=== PATIENT | male | born 1975 | race Hispanic/Latino ===

== ENCOUNTER 2018-06-26 11:27 | Emergency (ER) | payer SELFPAY ==
[2018-06-26 12:23] LABS: Hematocrit 45.4 % (35.5-45.6); Hemoglobin 15.8 gm/dl (11.8-15.2); Mean Corpuscular HGB Conc 35 % (32-34); Mean Corpuscular Hemoglobin 30 pg (28-32); Mean Corpuscular Volume 87 fl (84-94); Platelet Count 315 K/mm3 (140-440); Red Blood Count 5.21 M/mm3 (3.65-5.03)
[2018-06-26 12:47] LABS: BUN/Creatinine Ratio 23; Blood Urea Nitrogen 18 mg/dL (9-20); Calcium 9.3 mg/dL (8.4-10.2); Hemolysis Index 36
--- NOTE | 2018-06-26 12:48 | Emergency Department Report ---
ED Neuro Deficit HPI - General Chief Complaint: Neuro Symptoms/Deficit Stated Complaint: RT LEG RT ARM TINGLE Time Seen by Provider: 06/26/18 12:17 Source: EMS Mode of arrival: Wheelchair Limitations: No Limitations - History of Present Illness Initial Comments: 42 year old male with a past medical history of Chiari malformation 1, asthma, and gout presents to the hospital with complaints of worsening neurologic symptoms. Patient was recently diagnosed with Chiari malformation 1 in October 2017. At that time he was having intermittent blackouts, dizziness, blurred vision, headaches, and tingling to the right side of his body. In November 2017 [facility] neurosurgeon Alber Montenegro performed surgery and patient thought this would alleviate his symptoms. Symptoms decreased slightly but have been progressively worsening. The last 4 days he has had persistent and more significant tingling to the right arm and leg and having difficulty gripping objects was his right hand. He also states he is beginning to have some mild tingling sensation to his left side as well. He continues to have intermittent severe headaches, blackouts, and dizzy spells. Light exacerbates headache. He complains of frequent nausea but no vomiting reported today. He is currently on caffeine pills to try to control his headache symptoms which are recently increased by his primary care doctor Dr. Hale. Patient apparently is scheduled to see a new neurologist Dr. Bridges but was sent to the ER by his PCP due to increasing neurologic symptoms. - Related Data Home Medications: Previous Rx's Medication Instructions Recorded Last Taken Type Amoxicillin/K Clav Tab [Augmentin 1 tab PO Q12HR #20 tab 03/23/16 Unknown Rx 875 mg] HYDROcodone/APAP 5-325 [Alpine 1 each PO Q4HR PRN #20 tablet 03/23/16 Unknown Rx 5/325] Allergies/Adverse Reactions: Allergies Allergy/AdvReac Type Severity Reaction Status Date / Time tomato Allergy Shortness Verified 03/22/16 20:49 of Breath ED Review of Systems ROS: Stated complaint: RT LEG RT ARM TINGLE Other details as noted in HPI Comment: All other systems reviewed and negative ED Past Medical Hx - Past Medical History Hx Asthma: Yes Additional medical history: gout, Chiari malformation I October 2017 - Surgical History Additional Surgical History: Chiari malformation surgery 11/2017 - Social History Smoking Status: Unknown if ever smoked Substance Use Type: None - Medications Home Medications: Home Medications Medication Instructions Recorded Confirmed Last Taken Type Amoxicillin/K Clav Tab [Augmentin 1 tab PO Q12HR #20 tab 03/23/16 Unknown Rx 875 mg] HYDROcodone/APAP 5-325 [Alpine 1 each PO Q4HR PRN #20 tablet 03/23/16 Unknown Rx 5/325] ED Neuro Physical Exam - General Limitations: No Limitations Suspected Stroke: Yes - NIHSS Assessment Interval: Baseline 1a. Level of Consciousness: alert/keenly responsive 1b. LOC Questions: answers both correctly 1c. LOC Commands: performs tasks correctly 2. Best Gaze: normal 3. Visual: no visual loss 4. Facial Palsy: normal symmetrical movement 5b. Motor Arm Right: no drift 5a. Motor Arm Left: no drift 6a. Motor Leg Left: no drift 6b. Motor Leg Right: no drift 7. Limb Ataxia: absent 8. Sensory: mild/moderate sensory loss (right arm and right leg) 9. Best Language: no aphasia 10. Dysarthria: normal 11. Extinction/Inattention: no abnormality Total Score: 1 Stroke Severity: Minor Stroke - Other Other exam information: General: No limitations, patient is alert in no acute distress Head exam: Atraumatic, normocephalic Eyes exam: Normal appearance, pupils equal reactive to light, extraocular movements intact ENT: Moist mucous membrane, normal oropharynx Neck exam: Normal inspection, full range of motion, no meningismus nontender Respiratory exam: Clear to auscultation bilateral, no wheezes, rales, crackles Cardiovascular: Normal rate and rhythm, normal heart sounds Abdomen: Soft, nondistended, and nontender, with normal bowel sounds, no rebound, or guarding Extremity: Full range of motion normal inspection no deformity Back: Normal Inspection, full range of motion, no tenderness Neurologic: Alert, oriented x3, cranial nerves intact, see NIH stroke scale. Decreased sensation to the right arm and leg described as a tingling sensation. No left or right extremities drift On exam Psychiatric: normal affect, normal mood Skin: Warm, dry, intact ED Course Vital Signs 06/26/18 06/26/18 06/26/18 11:37 12:06 12:16 Temperature 98.8 F Pulse Rate 73 89 75 Respiratory 18 21 16 Rate Blood Pressure 133/95 140/89 O2 Sat by Pulse 97 96 Oximetry 06/26/18 06/26/18 06/26/18 12:30 12:52 13:00 Temperature Pulse Rate 75 73 77 Respiratory 18 27 H 15 Rate Blood Pressure 137/82 137/82 153/82 O2 Sat by Pulse 96 96 96 Oximetry 06/26/18 14:00 Temperature Pulse Rate 71 Respiratory 11 L Rate Blood Pressure 134/84 O2 Sat by Pulse 96 Oximetry - Consultations Consultation #1: 06/26/18 14:40 Case d/w [facility] transfer service, awaiting neurosurgery call back 06/26/18 15:19 Received call back from [facility] transfer service. Transfer RN spoke to Dr Matthew Mac (neurosurgeon) who believes his symptoms are chronic and progressive and people also have a fluid collection after surgery. Provided an option for follow-up in clinic tomorrow or Sunday or patient can be transferred to the emergency department at [facility] for evaluation. Pt chooses to f/u tomorrow. - Lab Data Result diagrams: 06/26/18 12:08 06/26/18 12:08 Lab Results 06/26/18 06/26/18 Range/Units 12:08 12:08 WBC 5.4 (4.5-11.0) K/mm3 RBC 5.21 H (3.65-5.03) M/mm3 Hgb 15.8 H (11.8-15.2) gm/dl Hct 45.4 (35.5-45.6) % MCV 87 (84-94) fl MCH 30 (28-32) pg MCHC 35 H (32-34) % RDW 14.0 (13.2-15.2) % Plt Count 315 (140-440) K/mm3 Sodium 137 (137-145) mmol/L Potassium 4.4 (3.6-5.0) mmol/L Chloride 101.1 (98-107) mmol/L Carbon Dioxide 22 (22-30) mmol/L Anion Gap 18 mmol/L BUN 18 (9-20) mg/dL Creatinine 0.8 (0.8-1.5) mg/dL Estimated GFR > 60 ml/min BUN/Creatinine Ratio 23 % Glucose 93 (75-100) mg/dL Calcium 9.3 (8.4-10.2) mg/dL - Radiology Data Radiology results: report reviewed CT HEAD WITHOUT CONTRAST INDICATION: Right arm and leg numbness and tingling. History of Chiari 1 malformation surgery. COMPARISON: None similar. FINDINGS: Noncontrast head CT demonstrates overall normal ventricles and sulci without acute or recent infarct, hemorrhage, mass effect or midline shift. An index transverse measurement of the left frontal horn is approximately 0.9 cm, axial series 2, image 31. Posterior fossa demonstrates suboccipital midline craniectomy with extra-axial hypodense possible fluid collection measuring 2.5 cm AP x 4.4 cm transverse, axial series 2, image 12 with incompletely imaged craniocaudal extent of at least approximately 5 cm. Basilar cisterns though still preserved. Somewhat low lying cerebellar tonsils again not excluded. Normal imaged eye globes. Moderate to severe right sphenoid sinus opacification. Mild bilateral maxillary, ethmoid and left sphenoid sinus mucosal thickening also seen. Grossly clear remainder imaged paranasal sinuses and mastoid air cells. Normal remainder calvarium and scalp. C4-C5 degenerative changes. CONCLUSION: 1. Hypodense postoperative surgical bed fluid collection/seroma in this patient with suboccipital craniotomy, as detailed above. Please correlate clinically as also with prior imaging, if available. 2. Extensive sinusitis and few other findings, as above. Thank you for the opportunity to participate in this patient's care. - Medical Decision Making Patient has chronic progressive and worsening right-sided paresthesias as well as a variety of neurologic symptoms as result of Chiari malformation. Surgery did not correct the symptoms. CT head was performed and communicated to transfer service. After discussion with on-call neurosurgeon it is suggested that symptoms are chronic and progressive and patient may follow up in the office tomorrow or be transferred to the ER today. Patient chooses to follow up tomorrow in the office. Patient should call at 7 AM and office will be provided his information as well for follow-up. Patient will be provided a copy of his CT on disc and reports to take to his neurosurgeon is tomorrow. - Differential Diagnosis Chiari malformation, hydrocephalus, CVA, radiculopathy Critical Care Time: No Critical care attestation.: If time is entered above; I have spent that time in minutes in the direct care of this critically ill patient, excluding procedure time. ED Disposition Clinical Impression: Chiari malformation type I, Paresthesia of right arm and leg, Chronic headaches Disposition: DC-01 TO HOME OR SELFCARE Is pt being admited?: No Does the pt Need Aspirin: No Condition: Stable Instructions: Chiari Malformation (GEN), Paresthesia (ED) Additional Instructions: Follow up with your neurosurgeon tomorrow in the office. They open at 7 AM. I suggest calling at 7 AM to discuss time to go into the office. Referrals: PRIMARY CAREMD [Primary Care Provider] - 3-5 Days MD Lan [Other] - 06/27/18 ([facility]) Time of Disposition: 15:40
--- NOTE | 2018-06-26 14:21 | Cat Scan Report ---
CT HEAD WITHOUT CONTRAST INDICATION: Right arm and leg numbness and tingling. History of Chiari 1 malformation surgery. COMPARISON: None similar. FINDINGS: Noncontrast head CT demonstrates overall normal ventricles and sulci without acute or recent infarct, hemorrhage, mass effect or midline shift. An index transverse measurement of the left frontal horn is approximately 0.9 cm, axial series 2, image 31. Posterior fossa demonstrates suboccipital midline craniectomy with extra-axial hypodense possible fluid collection measuring 2.5 cm AP x 4.4 cm transverse, axial series 2, image 12 with incompletely imaged craniocaudal extent of at least approximately 5 cm. Basilar cisterns though still preserved. Somewhat low lying cerebellar tonsils again not excluded. Normal imaged eye globes. Moderate to severe right sphenoid sinus opacification. Mild bilateral maxillary, ethmoid and left sphenoid sinus mucosal thickening also seen. Grossly clear remainder imaged paranasal sinuses and mastoid air cells. Normal remainder calvarium and scalp. C4-C5 degenerative changes. CONCLUSION: 1. Hypodense postoperative surgical bed fluid collection/seroma in this patient with suboccipital craniotomy, as detailed above. Please correlate clinically as also with prior imaging, if available. 2. Extensive sinusitis and few other findings, as above. Thank you for the opportunity to participate in this patient's care.
[2018-06-26 15:58] VITALS: BP 127/74
== END 2018-06-26 16:07 | disposition home or self-care (01) ==
LOC: ED 11:27
DX: G93.5 Compression of brain (principal); J45.909 Unspecified asthma, uncomplicated; Z91.018 Allergy to other foods
CPT/HCPCS: 36415; 70450; 80048; 85027; 99284

== ENCOUNTER 2020-10-06 17:20 | Emergency (ER) | payer SELFPAY ==
[2020-10-06 17:26] VITALS: BP 109/78
[2020-10-06] MEDS ORDERED: KETOROLAC 30 MG/1 ML INJ IM ONE (17:56)
[2020-10-06] MEDS ORDERED: dexAMETHasone 20 MG/5 ML VIAL IM ONE (17:56)
--- NOTE | 2020-10-06 18:01 | Emergency Department Report ---
ED Extremity Problem HPI - General Chief complaint: Extremity Injury, Lower Stated complaint: GOUT PAIN Time Seen by Provider: 10/06/20 17:54 Source: patient Mode of arrival: Ambulatory Limitations: No Limitations - History of Present Illness Initial comments: This is 44-year-old male presents the emergency department with chief complaint of acute left knee and ankle pain for the past 2 days. Patient has a history of recurrent gout flares. He denies any change in his diet that may have precipitated this flareup. He reports the pain is 9 out of 10 worse with movement practically weightbearing. He states this is a very typical location of his gout flareup on the left leg and has had this multiple times in the past. He denies any fever, chills, night sweats, headache, dizziness, blurry vision, nausea, vomit, diarrhea, chest pain, shortness of breath or any other associated symptoms. MD Complaint: extremity pain, extremity swelling Severity scale (0 -10): 9 - Related Data Previous Rx's Medication Instructions Recorded Last Taken Type Amoxicillin/K Clav Tab [Augmentin 1 tab PO Q12HR #20 tab 03/23/16 Unknown Rx 875 mg] HYDROcodone/APAP 5-325 [[place] 1 each PO Q4HR PRN #20 tablet 03/23/16 Unknown Rx 5/325] Acetaminophen with Codeine 1 tab PO Q6HR #12 tab 10/06/20 Unknown Rx [Acetaminophen-Codeine #4 TAB] predniSONE [Deltasone] 50 mg PO QDAY #5 tablet 10/06/20 Unknown Rx Allergies Allergy/AdvReac Type Severity Reaction Status Date / Time tomato Allergy Shortness Verified 10/06/20 17:22 of Breath ED Review of Systems ROS: Stated complaint: GOUT PAIN Other details as noted in HPI Comment: All other systems reviewed and negative Constitutional: denies: chills, fever Eyes: denies: eye pain, eye discharge, vision change ENT: denies: ear pain, throat pain Respiratory: denies: cough, shortness of breath, wheezing Cardiovascular: denies: chest pain, palpitations Endocrine: no symptoms reported Gastrointestinal: denies: abdominal pain, nausea, diarrhea Genitourinary: denies: urgency, dysuria Musculoskeletal: as per HPI, joint swelling. denies: back pain, arthralgia Skin: denies: rash, lesions Neurological: denies: headache, weakness, paresthesias Psychiatric: denies: anxiety, depression Hematological/Lymphatic: denies: easy bleeding, easy bruising ED Past Medical Hx - Past Medical History Hx Asthma: Yes Additional medical history: gout, Chiari malformation I October 2017 - Surgical History Additional Surgical History: Chiari malformation surgery 11/2017 - Social History Smoking Status: Never Smoker Substance Use Type: None, Alcohol - Medications Home Medications: Home Medications Medication Instructions Recorded Confirmed Last Taken Type Amoxicillin/K Clav Tab [Augmentin 1 tab PO Q12HR #20 tab 03/23/16 Unknown Rx 875 mg] HYDROcodone/APAP 5-325 [[place] 1 each PO Q4HR PRN #20 tablet 03/23/16 Unknown Rx 5/325] Acetaminophen with Codeine 1 tab PO Q6HR #12 tab 10/06/20 Unknown Rx [Acetaminophen-Codeine #4 TAB] predniSONE [Deltasone] 50 mg PO QDAY #5 tablet 10/06/20 Unknown Rx ED Physical Exam - General Limitations: No Limitations General appearance: alert, in no apparent distress - Head Head exam: Present: atraumatic, normocephalic - Eye Eye exam: Present: normal appearance, PERRL, EOMI Pupils: Present: normal accommodation - ENT ENT exam: Present: normal exam, normal orophraynx, mucous membranes moist - Neck Neck exam: Present: normal inspection, full ROM. Absent: tenderness, meningismus - Respiratory Respiratory exam: Present: normal lung sounds bilaterally. Absent: respiratory distress, wheezes, rales, rhonchi, stridor - Cardiovascular Cardiovascular Exam: Present: regular rate, normal rhythm, normal heart sounds. Absent: systolic murmur, diastolic murmur, rubs, gallop - GI/Abdominal GI/Abdominal exam: Present: soft, normal bowel sounds. Absent: distended, tenderness, guarding, rebound, rigid - Rectal Rectal exam: Present: deferred - Extremities Exam Extremities exam: Present: normal inspection, full ROM, tenderness (Tenderness to palpation of the left ankle with some mild soft tissue swelling. Tenderness to palpation of the left knee with some effusion. There is full active range of motion with minimal pain. There is no posterior calf tenderness. Normal DP and PT pulses.), normal capillary refill. Absent: calf tenderness - Back Exam Back exam: Present: normal inspection, full ROM. Absent: tenderness, CVA tenderness (R), CVA tenderness (L) - Neurological Exam Neurological exam: Present: alert, oriented X3, normal gait - Psychiatric Psychiatric exam: Present: normal affect, normal mood - Skin Skin exam: Present: warm, dry, intact, normal color. Absent: rash ED Course Vital Signs 10/06/20 17:25 Temperature 97.8 F Pulse Rate 100 H Respiratory 18 Rate Blood Pressure 109/78 [Right] O2 Sat by Pulse 97 Oximetry ED Medical Decision Making - Medical Decision Making Patient nontoxic in no acute distress. Vital signs are stable. Exam was consistent with an acute gouty flare. The patient is a low Wells risk for DVT and no posterior calf tenderness with a negative Homans' sign making this unlikely. I will treat the patient with an IM injection of Decadron and Toradol and discharge him with Tylenol 3 and prednisone and recommended outpatient follow-up with his primary care doctor. Return to the emerge department any change or worsening symptoms. He was educated about low purine diet to avoid future gout flares. He verbalized understanding the diagnosis, treatment plan and follow-up instructions and all his questions were answered. - Differential Diagnosis Acute gouty arthritis, strain, sprain, DVT Critical care attestation.: If time is entered above; I have spent that time in minutes in the direct care of this critically ill patient, excluding procedure time. ED Disposition Clinical Impression: Acute gouty arthritis Disposition: TO HOME OR SELFCARE Is pt being admited?: No Condition: Stable Instructions: Low-Purine Eating Plan Prescriptions: Acetaminophen with Codeine [Acetaminophen-Codeine #4 TAB] 1 tab PO Q6HR #12 tab predniSONE [Deltasone] 50 mg PO QDAY #5 tablet Referrals: [facility] [Provider Group] - 3-5 Days Time of Disposition: 18:00
== END 2020-10-06 19:51 | disposition home or self-care (01) ==
LOC: ED 17:20
DX: M10.9 Gout, unspecified (principal); J45.909 Unspecified asthma, uncomplicated; Z79.899 Other long term (current) drug therapy; Z91.018 Allergy to other foods; Z98.890 Other specified postprocedural states
CPT/HCPCS: 96372; 99282; J1100; J1885

== ENCOUNTER 2021-02-09 11:58 | Emergency (ER) | payer SELFPAY ==
[2021-02-09] MEDS ORDERED: SODIUM CHLORIDE 0.9% 1000 ML 1,000 ML IV ONE (13:11)
[2021-02-09] MEDS ORDERED: MAGNESIUM SULFATE 2 GM/50 ML BAG IV ONE (13:11)
[2021-02-09] MEDS ORDERED: methylPREDNISolone Sod Succinate 125 MG/2 ML INJ IV ONE (13:11)
[2021-02-09] MEDS ORDERED: EPINEPHrine/PF 1 MG/1 ML INJ SUB-Q ONE (13:11)
[2021-02-09] MEDS ORDERED: ALBUTEROL 2.5 MG/3 ML NEBU IH ONE (13:11)
[2021-02-09] MEDS ORDERED: IPRATROPIUM 0.02% NEBU 2.5 ML IH ONE (13:11)
[2021-02-09] MEDS ORDERED: ACETAMINOPHEN 500 MG TAB PO ONE (13:12)
--- NOTE | 2021-02-09 13:13 | Emergency Department Report ---
ED General Adult HPI - General Chief complaint: Dyspnea/Respdistress Stated complaint: CP/ADOLPH PUI?: No Time Seen by Provider: 02/09/21 12:37 Source: patient, RN notes reviewed, old records reviewed Mode of arrival: Ambulatory Limitations: No Limitations - History of Present Illness Initial comments: The patient was evaluated in the emergency department for symptoms described in the history of present illness. He/she was evaluated in the context of the global COVID-19 pandemic, which necessitated consideration that the patient might be at risk for infection with the virus that causes COVID-19. Institutional protocols and algorithms that pertain to the evaluation of patients at risk for COVID-19 are in a state of rapid change based on information released by regulatory bodies including the CDC and federal and state organizations. These policies and algorithms were followed during the patient's care in the emergency department. Please note that these policies, procedures and recommendations changed on a rapid basis. This is a 45-year-old gentleman. He is not known to myself previously. He reports a history of costochondritis, and asthma. He is also up-to-date with COVID-19 vaccinations. He presents to the ER today with a complaint of cough, wheezing, shortness of breath, and chest wall pain. His symptoms have been going on for 4 days. He denies fever, loss of taste and smell. He denies vomiting. He denies diaphoresis. He denies travel, surgery, DVT and pulmonary embolism risk factors. He reports that he typically gets chest wall pain with his asthma attacks. Chest wall pain is central and left-sided, and does not radiate to the back, arms or neck. Cough and wheezing constant. He is not really tried any medications at home. To the best of his recollection, he has not been intubated. -: Gradual, days(s) Location: chest Radiation: non-radiation Consistency: constant Improves with: rest Worsens with: movement (Palpation of chest wall) - Related Data Previous Rx's Medication Instructions Recorded Last Taken Type predniSONE [Deltasone] 50 mg PO QDAY #5 tablet 10/06/20 Unknown Rx Acetaminophen [Non-Aspirin Extra 500 mg PO Q6HR PRN #30 tablet 02/09/21 Unknown Rx Strength] Albuterol Sulfate [Albuterol 0.63% 0.63 mg IH Q4HR PRN #2 ml 02/09/21 Unknown Rx NEBS] Albuterol Sulfate [Proair 90 mcg IH Q4HR PRN #2 aer.pow.ba 02/09/21 Unknown Rx Respiclick] Benzonatate [Tessalon Perles] 100 mg PO Q8HR PRN #30 capsule 02/09/21 Unknown Rx Famotidine [Pepcid] 20 mg PO BID #10 tablet 02/09/21 Unknown Rx Ibuprofen [Motrin] 600 mg PO Q8H PRN #30 tablet 02/09/21 Unknown Rx predniSONE [Deltasone] 40 mg PO QDAY #8 tab 02/09/21 Unknown Rx Allergies Allergy/AdvReac Type Severity Reaction Status Date / Time tomato Allergy Shortness Verified 02/09/21 15:02 of Breath ED Review of Systems ROS: Stated complaint: CP/ADOLPH Other details as noted in HPI Constitutional: malaise, other (Denies loss of taste and smell) Eyes: denies: eye discharge ENT: congestion Respiratory: cough, shortness of breath, SOB with exertion, SOB at rest, wheezing Cardiovascular: chest pain (Chest wall pain) Gastrointestinal: denies: nausea, vomiting Musculoskeletal: denies: back pain Neurological: weakness Psychiatric: anxiety Hematological/Lymphatic: denies: easy bleeding ED Past Medical Hx - Past Medical History Previous Medical History?: Yes Hx Asthma: Yes Additional medical history: gout, Chiari malformation I October 2017 - Surgical History Past Surgical History?: Yes Additional Surgical History: Chiari malformation surgery 11/2017 - Social History Smoking Status: Never Smoker Substance Use Type: None, Alcohol - Medications Home Medications: Home Medications Medication Instructions Recorded Confirmed Last Taken Type predniSONE [Deltasone] 50 mg PO QDAY #5 tablet 10/06/20 Unknown Rx Acetaminophen [Non-Aspirin Extra 500 mg PO Q6HR PRN #30 tablet 02/09/21 Unknown Rx Strength] Albuterol Sulfate [Albuterol 0.63% 0.63 mg IH Q4HR PRN #2 ml 02/09/21 Unknown Rx NEBS] Albuterol Sulfate [Proair 90 mcg IH Q4HR PRN #2 aer.pow.ba 02/09/21 Unknown Rx Respiclick] Benzonatate [Tessalon Perles] 100 mg PO Q8HR PRN #30 capsule 02/09/21 Unknown Rx Famotidine [Pepcid] 20 mg PO BID #10 tablet 02/09/21 Unknown Rx Ibuprofen [Motrin] 600 mg PO Q8H PRN #30 tablet 02/09/21 Unknown Rx predniSONE [Deltasone] 40 mg PO QDAY #8 tab 02/09/21 Unknown Rx ED Physical Exam - General Limitations: No Limitations General appearance: alert, anxious, in distress, obese - Head Head exam: Present: atraumatic, normocephalic - Eye Eye exam: Present: normal appearance, EOMI. Absent: nystagmus - ENT ENT exam: Present: normal exam, normal orophraynx, mucous membranes moist, normal external ear exam - Neck Neck exam: Present: normal inspection, full ROM. Absent: tenderness, meningismus - Respiratory Respiratory exam: Present: respiratory distress, wheezes, rhonchi, chest wall tenderness, accessory muscle use - Cardiovascular Cardiovascular Exam: Present: normal rhythm, tachycardia, normal heart sounds. Absent: bradycardia, irregular rhythm, systolic murmur, diastolic murmur, rubs, gallop - GI/Abdominal GI/Abdominal exam: Present: soft. Absent: distended, tenderness, guarding, rebound, rigid, pulsatile mass - Rectal Rectal exam: Present: deferred - Extremities Exam Extremities exam: Present: normal inspection, full ROM, other (2+ pulses noted in the bilateral upper and lower extremities. There is no palpable cord. negative Homans sign. Muscular compartments are soft. The pelvis is stable.). Absent: pedal edema, calf tenderness - Back Exam Back exam: Present: normal inspection, full ROM. Absent: tenderness, CVA tenderness (R), CVA tenderness (L), paraspinal tenderness, vertebral tenderness - Neurological Exam Neurological exam: Present: alert, normal gait, other (No facial droop. Tongue midline. Extraocular movements intact bilaterally. Facial sensation intact to light touch in V1, V2, V3 distribution bilaterally. 5 and a 5 strength in 4 extremities. Sensation intact to light touch in 4 extremities.). Absent: motor sensory deficit - Psychiatric Psychiatric exam: Present: anxious - Skin Skin exam: Present: warm, dry, intact, normal color. Absent: rash ED Course Vital Signs 02/09/21 02/09/21 02/09/21 12:02 13:25 14:01 Temperature 98.2 F Pulse Rate 101 H 86 Pulse Rate [ 105 H Anterior Bilateral Throughout] Respiratory 30 H Rate Respiratory 22 Rate [Anterior Bilateral Throughout] Blood Pressure 117/79 118/80 [Right] O2 Sat by Pulse 92 94 Oximetry 02/09/21 02/09/21 15:00 16:09 Temperature Pulse Rate 79 83 Pulse Rate [ Anterior Bilateral Throughout] Respiratory Rate Respiratory Rate [Anterior Bilateral Throughout] Blood Pressure 137/63 123/82 [Right] O2 Sat by Pulse 93 92 Oximetry - Reevaluation(s) Reevaluation #1: 02/09/21 14:05 Differential diagnosis, including but not limited to: Asthma, bronchitis, pneumonia, costochondritis, pericarditis, myocarditis, acute coronary syndrome Assessment and plan: 39-year-old gentleman who is both tachypneic and tachycardic, with improved hypoxia, with known history of reactive airways disease, who denies DVT and pulmonary embolism risk factors, who is low risk by Wells criteria for pulmonary embolism, with a negative D-dimer, abnormal EKG, negative troponin, low risk for major adverse cardiac event as per heart score, with probable asthma exacerbation, and resultant costochondritis. He is wheezing quite impressively on his initial examination, so he'll be treated with albuterol, Atrovent, steroids, magnesium, and subcutaneous epin ephrine. He'll be given fluids, and acetaminophen for his reproducible chest wall pain. Chest wall pain present for 4 days, troponin negative x1, therefore, as per the [employer] clinical policy, myocardial infarction may be excluded with one set of cardiac enzymes. Reassess after he is completed his therapy, and after remainder of laboratory studies have resulted. 02/09/21 15:31 Patient reassessed. Wheezing improved. Has resolved. Tachycardia resolved. O2 sat 99% on room air. Patient on his cell phone, and in no acute distress. Reports significant improvement in his symptomatology. 02/09/21 16:13 Patient feels improved and ready to go. Vital signs reviewed and appreciated. There may be some VQ mismatch after administration of albuterol and Atrovent. However the patient is symptomatically improved, not wheezing, and endorses readiness for discharge. ED Medical Decision Making - Lab Data Result diagrams: 02/09/21 13:24 02/09/21 13:24 Vital Signs 02/09/21 02/09/21 12:02 13:25 Temperature 98.2 F Pulse Rate 101 H Pulse Rate [ 105 H Anterior Bilateral Throughout] Respiratory 30 H Rate Respiratory 22 Rate [Anterior Bilateral Throughout] Blood Pressure 117/79 [Right] O2 Sat by Pulse 92 Oximetry Lab Results 02/09/21 02/09/21 02/09/21 Range/Units 13:24 13:24 13:24 WBC 6.7 (4.5-11.0) K/mm3 RBC 5.44 H (3.65-5.03) M/mm3 Hgb 16.3 H (11.8-15.2) gm/dl Hct 46.8 H (35.5-45.6) % MCV 86 (84-94) fl MCH 30 (28-32) pg MCHC 35 H (32-34) % RDW 13.3 (13.2-15.2) % Plt Count 259 (140-440) K/mm3 PT 13.9 (12.2-14.9) Sec. INR 1.09 (0.87-1.13) D-Dimer < 135.00 (0-234) ng/mlDDU Estimated GFR > 60 ml/min BUN/Creatinine Ratio 13 % Total Creatine Kinase (55-170) units/L 02/09/21 Range/Units 13:24 WBC (4.5-11.0) K/mm3 RBC (3.65-5.03) M/mm3 Hgb (11.8-15.2) gm/dl Hct (35.5-45.6) % MCV (84-94) fl MCH (28-32) pg MCHC (32-34) % RDW (13.2-15.2) % Plt Count (140-440) K/mm3 PT (12.2-14.9) Sec. INR (0.87-1.13) D-Dimer (0-234) ng/mlDDU Estimated GFR ml/min BUN/Creatinine Ratio % Total Creatine Kinase 153 (55-170) units/L - EKG Data -: EKG Interpreted by Hi EKG shows normal: sinus rhythm Rate: tachycardia - EKG Data When compared to previous EKG there are: previous EKG unavailable 02/09/21 14:04 EKG interpreted at 12: 10 Sinus rhythm, tachycardia, 102 bpm. Extreme rightward axis deviation. Incomplete right bundle branch block. QTC prolonged. TX interval within normal limits. This is an abnormal EKG. This is not a STEMI. - Radiology Data Radiology results: image reviewed interpreted by me: Portable one view x-ray of the chest, interpreted by myself, no pneumothorax, no infiltrate, unremarkable osseous structures. Critical Care Time: Yes Critical care time in (mins) excluding proc time.: 35 Critical care attestation.: If time is entered above; I have spent that time in minutes in the direct care of this critically ill patient, excluding procedure time. ED Disposition Clinical Impression: Costochondritis Reactive airway disease Qualifiers: Asthma severity: moderate Asthma complication type: with acute exacerbation Disposition: DC-01 TO HOME OR SELFCARE Is pt being admited?: No Does the pt Need Aspirin: No Condition: Good Instructions: Asthma, Adult, Costochondritis, [id number] Additional Instructions: Please take the albuterol every 4-6 hours for the next 5 days as directed, and use the steroids for the next 4 days as directed. Take the ibuprofen and acetaminophen as needed for chest wall pain, and Pepcid as needed for pain. Please follow-up with your primary care doctor or senior oracle soa developer within the next 3 to 5 days. Avoid consumption of tobacco, smoke products, alcohol, heavy and spicy foods. Please return to the emergency room right away with new pain, worsened pain, migration of pain, projectile vomiting, change in mental status, confusion, inability to tolerate liquid feeds, new, worsened or different symptoms not present on the initial emergency room evaluation. For the patient's convenience, local primary care doctor, Dr. Gupta information has been provided. Dr. Cardona is a local senior oracle soa developer. Prescriptions: Albuterol Sulfate [Albuterol 0.63% NEBS] 0.63 mg IH Q4HR PRN #2 ml PRN Reason: Wheezing predniSONE [Deltasone] 40 mg PO QDAY #8 tab Ibuprofen [Motrin] 600 mg PO Q8H PRN #30 tablet PRN Reason: Pain Acetaminophen [Non-Aspirin Extra Strength] 500 mg PO Q6HR PRN #30 tablet PRN Reason: Pain , Severe (7-10) Famotidine [Pepcid] 20 mg PO BID #10 tablet Albuterol Sulfate [Proair Respiclick] 90 mcg IH Q4HR PRN #2 aer.pow.ba PRN Reason: Wheezing Benzonatate [Tessalon Perles] 100 mg PO Q8HR PRN #30 capsule PRN Reason: Cough Referrals: KARL VILLALBA MD [Staff Physician] - 3-5 Days IRENE CARDONA MD [Staff Physician] - 3-5 Days Forms: Work/School Release Form(ED) Heart Score - HEART Score History: Slightly suspicious EKG: Non-specific Age: 45-65 Risk factors: 1-2 risk factors Troponin: < normal limit HEART Score: 3 - EKG Read Time Time EKG Completed: 12:10 EKG Read Time: 12:10 - Critical Actions Critical Actions: 0-3 pts:0.9-1.7%risk of adverse cardiac event.Candidate for discharge
[2021-02-09 13:48] LABS: Hematocrit 46.8 % (35.5-45.6); Hemoglobin 16.3 gm/dl (11.8-15.2); Mean Corpuscular HGB Conc 35 % (32-34); Mean Corpuscular Volume 86 fl (84-94); Platelet Count 259 K/mm3 (140-440); Red Blood Count 5.44 M/mm3 (3.65-5.03); Red Cell Distribution Width 13.3 % (13.2-15.2)
[2021-02-09 13:54] LABS: INR 1.09 (0.87-1.13)
[2021-02-09 13:58] LABS: BUN/Creatinine Ratio 13; Blood Urea Nitrogen 10 mg/dL (9-20); Calcium 8.8 mg/dL (8.4-10.2); Hemolysis Index 13
--- NOTE | 2021-02-09 15:12 | XRay Report ---
CHEST 1 VIEW 02/09/2021 1:08 PM INDICATION / CLINICAL INFORMATION: Dyspnea. COMPARISON: None available. FINDINGS: SUPPORT DEVICES: None. HEART / MEDIASTINUM: The heart size and pulmonary vasculature are normal. LUNGS / PLEURA: No significant pulmonary or pleural abnormality. No pneumothorax. ADDITIONAL FINDINGS: No significant additional findings. IMPRESSION: No acute findings. Signer Name: Deonte Rodriguez MD Signed: 02/09/2021 3:07 PM Workstation Name: [id number]
[2021-02-09 16:10] VITALS: BP 123/82
--- NOTE | 2021-02-10 12:06 | Electrocardiograph Report ---
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
== END 2021-02-09 16:42 | disposition home or self-care (01) ==
LOC: ED 11:58
DX: J45.909 Unspecified asthma, uncomplicated (principal); M94.0 Chondrocostal junction syndrome [Tietze]; Z98.890 Other specified postprocedural states; Z79.1 Long term (current) use of non-steroidal anti-inflammatories (NSAID); Z79.899 Other long term (current) drug therapy; Z91.018 Allergy to other foods
CPT/HCPCS: 36415; 71045; 80048; 82550; 83735; 84484; 85027; 85379; 85610; 93005; 94640; 96365; 96372; 96375; 99284; J0171; J2930; J3475; J7030; 94644

== ENCOUNTER 2021-03-21 11:00 | Emergency (ER) | payer SELFPAY ==
[2021-03-21 11:32] VITALS: BP 126/82
--- NOTE | 2021-03-21 11:48 | Emergency Department Report ---
ED Extremity Problem HPI - General Chief complaint: Extremity Injury, Lower Stated complaint: POSSIBLE BLOOD CLOT Time Seen by Provider: 03/21/21 11:46 Source: patient Mode of arrival: Ambulatory Limitations: No Limitations - History of Present Illness Initial comments: 45-year-old male was sent to the ER for venous Doppler of his left lower extremity. Patient states that on Sunday the while she was at work he tripped over a pallet that was on the floor. He states that most of his weight went onto his knee and then he hit his knee on the concrete floor. After he suffered the injury he had significant pain and swelling to his left knee. His job sent him to the clinic for evaluation. He had x-rays of the knee and his wrist right wrist both of which showed no fractures. Currently doing physical therapy but he states that while he was doing therapy today the therapist noted that he had increasing swelling down his left leg and was concerned and sent him back to the doctor at the clinic. The doctor at the clinic recommended that he come in to have a Doppler done to rule out a DVT. In addition to having pain and swelling to the left knee, patient also reports pain and swelling into his left lower leg and also in the calf area. He denies any prior history of PE or DVT. He denies any chest pain, shortness of breath or any additional symptoms at this time. He states he has a follow-up appointment with his doctor at the clinic tomorrow. Complaint: extremity pain, extremity swelling -: days(s) (3) - Related Data Previous Rx's Medication Instructions Recorded Last Taken Type predniSONE [Deltasone] 50 mg PO QDAY #5 tablet 10/06/20 Unknown Rx Acetaminophen [Non-Aspirin Extra 500 mg PO Q6HR PRN #30 tablet 02/09/21 Unknown Rx Strength] Albuterol Sulfate [Albuterol 0.63% 0.63 mg IH Q4HR PRN #2 ml 02/09/21 Unknown Rx NEBS] Albuterol Sulfate [Proair 90 mcg IH Q4HR PRN #2 aer.pow.ba 02/09/21 Unknown Rx Respiclick] Benzonatate [Tessalon Perles] 100 mg PO Q8HR PRN #30 capsule 02/09/21 Unknown Rx Famotidine [Pepcid] 20 mg PO BID #10 tablet 02/09/21 Unknown Rx Ibuprofen [Motrin] 600 mg PO Q8H PRN #30 tablet 02/09/21 Unknown Rx predniSONE [Deltasone] 40 mg PO QDAY #8 tab 02/09/21 Unknown Rx Allergies Allergy/AdvReac Type Severity Reaction Status Date / Time tomato Allergy Shortness Verified 02/09/21 15:02 of Breath ED Review of Systems ROS: Stated complaint: POSSIBLE BLOOD CLOT Other details as noted in HPI Respiratory: denies: cough, shortness of breath, wheezing Cardiovascular: denies: chest pain, palpitations Musculoskeletal: joint swelling, arthralgia, myalgia Skin: denies: rash, lesions, change in color, change in hair/nails, pruritus Neurological: denies: headache, weakness, paresthesias Psychiatric: denies: anxiety, depression, auditory hallucinations, visual hallucinations, homicidal thoughts Hematological/Lymphatic: denies: easy bleeding, easy bruising ED Past Medical Hx - Past Medical History Previous Medical History?: Yes Hx Asthma: Yes Additional medical history: gout, Chiari malformation I October 2017 - Surgical History Past Surgical History?: Yes Additional Surgical History: Chiari malformation surgery 11/2017 - Social History Smoking Status: Never Smoker Substance Use Type: None, Alcohol - Medications Home Medications: Home Medications Medication Instructions Recorded Confirmed Last Taken Type predniSONE [Deltasone] 50 mg PO QDAY #5 tablet 10/06/20 Unknown Rx Acetaminophen [Non-Aspirin Extra 500 mg PO Q6HR PRN #30 tablet 02/09/21 Unknown Rx Strength] Albuterol Sulfate [Albuterol 0.63% 0.63 mg IH Q4HR PRN #2 ml 02/09/21 Unknown Rx NEBS] Albuterol Sulfate [Proair 90 mcg IH Q4HR PRN #2 aer.pow.ba 02/09/21 Unknown Rx Respiclick] Benzonatate [Tessalon Perles] 100 mg PO Q8HR PRN #30 capsule 02/09/21 Unknown Rx Famotidine [Pepcid] 20 mg PO BID #10 tablet 02/09/21 Unknown Rx Ibuprofen [Motrin] 600 mg PO Q8H PRN #30 tablet 02/09/21 Unknown Rx predniSONE [Deltasone] 40 mg PO QDAY #8 tab 02/09/21 Unknown Rx ED Physical Exam - General Limitations: No Limitations General appearance: alert, in no apparent distress - Head Head exam: Present: atraumatic, normocephalic, normal inspection - Eye Eye exam: Present: normal appearance, PERRL, EOMI Pupils: Present: normal accommodation - ENT ENT exam: Present: normal exam, mucous membranes moist - Neck Neck exam: Present: normal inspection, full ROM - Respiratory Respiratory exam: Present: normal lung sounds bilaterally. Absent: respiratory distress - Cardiovascular Cardiovascular Exam: Present: regular rate, normal rhythm, normal heart sounds - Expanded Lower Extremity Exam Left Knee exam: Present: tenderness, swelling (Mild to moderate swelling noted to the knee). Absent: full ROM (Mild decrease in flexion due to pain), abrasion, laceration, ecchymosis, deformity, dislocation, erythema, effusion Lower Leg exam: Present: tenderness (Mild tenderness to palpation to the left calf area), swelling (Moderate swelling noted to the left lower leg including the calf), ecchymosis (Subtle scattered areas of ecchymosis noted to the leg). Absent: laceration, deformity, crepidus, dislocation, erythema, palpable cord, Cheyanne's sign Neuro vascular tendon exam: Absent: no vascular compromise, abnormal cap refill, motor deficit, sensory deficit Gait: Positive: observed and limited by pain (Mild limping gait due to pain) - Neurological Exam Neurological exam: Present: alert, oriented X3, CN II-XII intact - Psychiatric Psychiatric exam: Present: normal affect, normal mood - Skin Skin exam: Present: intact ED Course Vital Signs 03/21/21 11:31 Temperature 98.0 F Pulse Rate 85 Respiratory 13 Rate Blood Pressure 126/82 O2 Sat by Pulse 95 Oximetry ED Medical Decision Making - Radiology Data Radiology results: report reviewed Patient: MARKOS BROWN MR# : [id number] : 1975 Acct:[id number] Age/Sex: 45 / M ADM Date: 03/21/21 Loc: ED Attending Dr: Ordering Physician: TEODORA MADISON Date of Service: 03/21/21 Procedure(s): VL venous duplex LE LT Accession Number(s): [id number] cc: TEODORA MADISON VL venous duplex LE LT INDICATION / CLINICAL INFORMATION: leg swelling. TECHNIQUE: Duplex doppler imaging was performed using venous compression and other maneuvers. COMPARISON: None available. FINDINGS: No venous thrombosis is identified within the visualized extremity vasculature. ADDITIONAL FINDINGS: None. IMPRESSION: 1. No sonographic evidence for DVT in the visualized left lower extremity vasculature. Signer Name: eKnnedy Lewis MD Signed: 03/21/2021 12:43 PM Workstation Name: [id number] Transcribed By: BESSIE Dictated By: Kennedy Lewis MD Electronically Authenticated By: Kennedy Lewis MD Signed Date/Time: 03/21/21 124 DD/ 42 TD/TT: Critical care attestation.: If time is entered above; I have spent that time in minutes in the direct care of this critically ill patient, excluding procedure time. ED Disposition Clinical Impression: Contusion of left knee, Left leg swelling Disposition: TO HOME OR SELFCARE Is pt being admited?: No Does the pt Need Aspirin: No Condition: Stable Instructions: Contusion, [id number], Peripheral Edema Additional Instructions: I recommend that you elevate your leg as often as possible. Keep your appointment with your doctor at the clinic tomorrow. Return to the ER if your symptoms worsens or changes in any way. Referrals: PRIMARY CAREMD [Primary Care Provider] - 3-5 Days Time of Disposition: 13:01
--- NOTE | 2021-03-21 12:47 | Vascular Lab Report ---
VL venous duplex LE LT INDICATION / CLINICAL INFORMATION: leg swelling. TECHNIQUE: Duplex doppler imaging was performed using venous compression and other maneuvers. COMPARISON: None available. FINDINGS: No venous thrombosis is identified within the visualized extremity vasculature. ADDITIONAL FINDINGS: None. IMPRESSION: 1. No sonographic evidence for DVT in the visualized left lower extremity vasculature. Signer Name: Kennedy Lewis MD Signed: 03/21/2021 12:43 PM Workstation Name: [id number]
== END 2021-03-21 13:09 | disposition home or self-care (01) ==
LOC: ED 11:00
DX: S80.02XA Contusion of left knee, initial encounter (principal); R22.42 Localized swelling, mass and lump, left lower limb; J45.909 Unspecified asthma, uncomplicated; Z72.89 Other problems related to lifestyle; Z91.018 Allergy to other foods; Z79.899 Other long term (current) drug therapy; W01.0XXA Fall on same level from slipping, tripping and stumbling without subsequent striking against object, initial encounter; Y93.89 Activity, other specified; Y92.89 Other specified places as the place of occurrence of the external cause; Y99.8 Other external cause status
CPT/HCPCS: 99283

== ENCOUNTER 2021-04-29 23:38 | Emergency (ER) | payer SELFPAY ==
[2021-04-30 00:18] VITALS: BP 131/83
[2021-04-30 01:02] LABS: Basophils # (Auto) 0.1 K/mm3 (0.0-0.1); Basophils % (Auto) 0.8 % (0.0-1.8); Eosinophils # (Auto) 0.8 K/mm3 (0.0-0.4); Eosinophils % (Auto) 9.6 % (0.0-4.3); Lymphocytes # (Auto) 2.7 K/mm3 (1.2-5.4); Lymphocytes % (Auto) 30.5 % (13.4-35.0); Mean Corpuscular HGB Conc 37 % (32-34); Mean Corpuscular Volume 87 fl (84-94); Monocytes # (Auto) 0.8 K/mm3 (0.0-0.8); Monocytes % (Auto) 9.5 % (0.0-7.3); Platelet Count 291 K/mm3 (140-440); Red Blood Count 4.99 M/mm3 (3.65-5.03)
[2021-04-30 01:05] LABS: Hematocrit 43.5 % (35.5-45.6)
[2021-04-30 01:23] LABS: Alanine Aminotransferase 17 units/L (7-56); Albumin 4.5 g/dL (3.9-5); BUN/Creatinine Ratio 17; Blood Urea Nitrogen 15 mg/dL (9-20); Calcium 9.2 mg/dL (8.4-10.2); Hemolysis Index 25
== END 2021-04-30 00:30 | disposition left against medical advice (07) ==
LOC: ED 23:38
DX: R04.2 Hemoptysis (principal); R06.02 Shortness of breath; Z53.21 Procedure and treatment not carried out due to patient leaving prior to being seen by health care provider
CPT/HCPCS: 36415; 80053; 85025

== ENCOUNTER 2021-07-06 21:28 | Observation (INO) | payer OTHER ==
--- NOTE | 2021-07-06 22:00 | Emergency Department Report ---
ED Shortness of Breath HPI - General Chief Complaint: Dyspnea/Respdistress Stated Complaint: ASTHMA ATTACK Time Seen by Provider: 07/06/21 21:59 Source: patient, EMS Mode of arrival: Stretcher Limitations: No Limitations - History of Present Illness Initial Comments: Patient is a 45-year-old male who presents emergency room with complaints of asthma attack and difficulties breathing. Patient states he has been having difficulty breathing for 1 week. Patient states he has not seen a doctor for many years. Patient states been using old albuterol inhalers. Patient states he was at work and went into an asthma attack and his boss called 911. Patient was brought in by EMS. Patient was given albuterol 5 mg and Decadron 10 mg IV. Patient states he still having significant difficulties breathing. Patient states he feels he cannot catch his breath. Patient denies fever and chills. Patient states he has an occasional cough. Patient states the cough is dry. Patient states that shortness of breath better with rest and worse with exertion. By EMS, the patient was found to be hypoxic and placed on 5 L of oxygen. Patient denies recent travel. Patient denies recent international travel. Patient denies exposure to the novel coronavirus. Patient denies sick contacts. Patient denies fever and chills. Patient denies loss of smell. Patient denies diarrhea. Patient denies coming in contact with anybody with symptoms of the novel coronavirus. Complaint: shortness of breath, cough Severity: severe Consistency: constant Improves With: rest Worsens With: exertion, medication Known History Of: asthma Context: medication noncompliance Associated Symptoms: cough Treatments Prior to Arrival: bronchodilator, other - Related Data Home Oxygen Therapy: No Previous Rx's Medication Instructions Recorded Last Taken Type predniSONE [Deltasone] 50 mg PO QDAY #5 tablet 10/06/20 Unknown Rx Acetaminophen [Non-Aspirin Extra 500 mg PO Q6HR PRN #30 tablet 02/09/21 Unknown Rx Strength] Albuterol Sulfate [Albuterol 0.63% 0.63 mg IH Q4HR PRN #2 ml 02/09/21 Unknown Rx NEBS] Albuterol Sulfate [Proair 90 mcg IH Q4HR PRN #2 aer.pow.ba 02/09/21 Unknown Rx Respiclick] Benzonatate [Tessalon Perles] 100 mg PO Q8HR PRN #30 capsule 02/09/21 Unknown Rx Famotidine [Pepcid] 20 mg PO BID #10 tablet 02/09/21 Unknown Rx Ibuprofen [Motrin] 600 mg PO Q8H PRN #30 tablet 02/09/21 Unknown Rx predniSONE [Deltasone] 40 mg PO QDAY #8 tab 02/09/21 Unknown Rx Allergies Allergy/AdvReac Type Severity Reaction Status Date / Time tomato Allergy Shortness Verified 02/09/21 15:02 of Breath ED Review of Systems ROS: Stated complaint: ASTHMA ATTACK Other details as noted in HPI Constitutional: denies: chills, fever Eyes: denies: eye pain, eye discharge, vision change ENT: denies: ear pain, throat pain Respiratory: see HPI, cough, shortness of breath, SOB with exertion, SOB at rest, wheezing Cardiovascular: denies: chest pain, palpitations Endocrine: no symptoms reported Gastrointestinal: denies: abdominal pain, nausea, diarrhea Genitourinary: denies: urgency, dysuria Musculoskeletal: denies: back pain, joint swelling, arthralgia Skin: denies: rash, lesions Neurological: denies: headache, weakness, paresthesias Psychiatric: denies: anxiety, depression Hematological/Lymphatic: denies: easy bleeding, easy bruising ED Past Medical Hx - Past Medical History Previous Medical History?: Yes Hx Asthma: Yes Additional medical history: gout, Chiari malformation I October 2017 - Surgical History Past Surgical History?: Yes Additional Surgical History: Chiari malformation surgery 11/2017 - Family History Family history: no significant - Social History Smoking Status: Never Smoker Substance Use Type: None, Alcohol - Medications Home Medications: Home Medications Medication Instructions Recorded Confirmed Last Taken Type predniSONE [Deltasone] 50 mg PO QDAY #5 tablet 10/06/20 Unknown Rx Acetaminophen [Non-Aspirin Extra 500 mg PO Q6HR PRN #30 tablet 02/09/21 Unknown Rx Strength] Albuterol Sulfate [Albuterol 0.63% 0.63 mg IH Q4HR PRN #2 ml 02/09/21 Unknown Rx NEBS] Albuterol Sulfate [Proair 90 mcg IH Q4HR PRN #2 aer.pow.ba 02/09/21 Unknown Rx Respiclick] Benzonatate [Tessalon Perles] 100 mg PO Q8HR PRN #30 capsule 05/12/21 Unknown Rx Famotidine [Pepcid] 20 mg PO BID #10 tablet 02/09/21 Unknown Rx Ibuprofen [Motrin] 600 mg PO Q8H PRN #30 tablet 02/09/21 Unknown Rx predniSONE [Deltasone] 40 mg PO QDAY #8 tab 02/09/21 Unknown Rx ED Physical Exam - General Limitations: No Limitations General appearance: alert, in distress - Head Head exam: Present: atraumatic, normocephalic - Eye Eye exam: Present: normal appearance - ENT ENT exam: Present: mucous membranes moist - Neck Neck exam: Present: normal inspection - Respiratory Respiratory exam: Present: respiratory distress, wheezes, accessory muscle use, decreased breath sounds - Cardiovascular Cardiovascular Exam: Present: regular rate, normal rhythm. Absent: systolic murmur, diastolic murmur, rubs, gallop - GI/Abdominal GI/Abdominal exam: Present: soft, normal bowel sounds. Absent: distended, tenderness, guarding - Rectal Rectal exam: Present: deferred - Extremities Exam Extremities exam: Present: normal inspection - Back Exam Back exam: Present: normal inspection - Neurological Exam Neurological exam: Present: alert, oriented X3 - Psychiatric Psychiatric exam: Present: normal affect, normal mood - Skin Skin exam: Present: warm, dry, intact, normal color. Absent: rash ED Course Vital Signs 07/06/21 07/06/21 07/06/21 21:54 22:01 22:15 Temperature 98.2 F Pulse Rate 110 H 108 H 109 H Pulse Rate [ Bilateral] Respiratory 28 H 20 33 H Rate Respiratory Rate [Bilateral ] Blood Pressure 119/69 120/68 Blood Pressure 114/69 [Left] O2 Sat by Pulse 92 92 97 Oximetry 07/06/21 07/06/21 07/06/21 22:31 22:45 23:01 Temperature Pulse Rate 102 H 100 H 94 H Pulse Rate [ 94 H Bilateral] Respiratory 25 H 17 17 Rate Respiratory 18 Rate [Bilateral ] Blood Pressure 133/70 123/67 116/70 Blood Pressure [Left] O2 Sat by Pulse 96 96 97 Oximetry 07/06/21 07/06/21 07/06/21 23:15 23:30 23:45 Temperature Pulse Rate 99 H 100 H 99 H Pulse Rate [ Bilateral] Respiratory 22 22 20 Rate Respiratory Rate [Bilateral ] Blood Pressure 112/66 118/73 112/66 Blood Pressure 112/66 [Left] O2 Sat by Pulse 97 96 97 Oximetry 07/07/21 07/07/21 07/07/21 00:01 00:15 00:31 Temperature Pulse Rate 104 H 107 H 112 H Pulse Rate [ Bilateral] Respiratory 29 H 28 H 20 Rate Respiratory Rate [Bilateral ] Blood Pressure 120/80 118/73 119/68 Blood Pressure [Left] O2 Sat by Pulse 97 97 98 Oximetry 07/07/21 07/07/21 07/07/21 00:45 01:01 01:15 Temperature Pulse Rate 114 H 113 H 114 H Pulse Rate [ Bilateral] Respiratory 28 H 25 H 25 H Rate Respiratory Rate [Bilateral ] Blood Pressure 117/67 118/62 111/60 Blood Pressure [Left] O2 Sat by Pulse 90 90 91 Oximetry 07/07/21 07/07/21 07/07/21 01:31 01:45 02:01 Temperature Pulse Rate 110 H 113 H 106 H Pulse Rate [ Bilateral] Respiratory 24 30 H 20 Rate Respiratory Rate [Bilateral ] Blood Pressure 99/57 108/55 109/57 Blood Pressure [Left] O2 Sat by Pulse 96 93 95 Oximetry 07/07/21 07/07/21 07/07/21 02:15 02:31 02:45 Temperature Pulse Rate 105 H 105 H 108 H Pulse Rate [ Bilateral] Respiratory 17 19 18 Rate Respiratory Rate [Bilateral ] Blood Pressure 103/59 102/59 104/56 Blood Pressure [Left] O2 Sat by Pulse 95 95 93 Oximetry 07/07/21 07/07/21 03:01 03:45 Temperature Pulse Rate 108 H 109 H Pulse Rate [ Bilateral] Respiratory 20 25 H Rate Respiratory Rate [Bilateral ] Blood Pressure 110/58 105/64 Blood Pressure [Left] O2 Sat by Pulse 95 90 Oximetry - Reevaluation(s) Reevaluation #1: Patient is hypoxic and will remain on oxygen. Patient will be placed on BiPAP for his increased work to breathe and his lower silent chest. Patient is having upper wheezing only. Patient will also be given magnesium and a DuoNeb. Patient has already received albuterol 5 and 10 mg IV of Decadron. 07/06/21 22:26 Reevaluation #2: Patient on oxygen support. Patient is hypoxic without the oxygen. Patient received a DuoNeb and his work to breathe has improved. Patient will not be placed on BiPAP at this time we will hold off on BiPAP and use it only as needed. I discussed all results with patient. I discussed plan of care with patient. Patient agrees with plan of care and admission. Patient to be admitted to the hospitalist service. 07/07/21 00:05 - Consultations Consultation #1: Hospitalist consulted for admission. Hospitalist to admit patient. 07/07/21 00:12 ED Medical Decision Making - Lab Data Result diagrams: 07/06/21 22:32 07/06/21 22:32 - Radiology Data Radiology results: report reviewed, image reviewed interpreted by me: Chest x-ray: No pneumonia, no pneumothorax, no foreign body, no osseous findings, no acute findings - Medical Decision Making Patient is a 45-year-old male who presents emergency room for shortness of breath and asthma attack. Patient brought in by EMS. Patient received Decadron albuterol by EMS. Patient did have respiratory distress and increased work of breathing and wheezing. Patient was then given magnesium and a 10 mg albuterol DuoNeb. Patient work to breathe improved. Patient originally had BiPAP ordered but we placed BiPAP on hold since the patient improved with the albuterol DuoNeb. Patient continued to require oxygen support the entire time in the ER. Patient had labs done which were essentially unremarkable. I personally reviewed the labs. Patient had a chest x-ray which shows no acute findings and no pneumonia. I personally reviewed the chest x-ray. Patient admitted to the hospitalist service for further evaluation and treatment. Critical care time documented due to the multiple reassessments, prolonged time at the bedside, interpretation of diagnostics and labs. - Differential Diagnosis Hypoxia, status asthmaticus, shortness of breath, asthma attack, wheezing Critical Care Time: Yes Critical care time in (mins) excluding proc time.: 35 Critical care attestation.: If time is entered above; I have spent that time in minutes in the direct care of this critically ill patient, excluding procedure time. Critical Care Time: 35 minutes ED Disposition Clinical Impression: Shortness of breath Status asthmaticus Qualifiers: Asthma severity: severe Asthma persistence: unspecified Qualified Code(s): J45.902 - Unspecified asthma with status asthmaticus Respiratory failure Qualifiers: Chronicity: acute Respiratory failure complication: hypoxia Qualified Code(s): J96.01 - Acute respiratory failure with hypoxia Disposition: ADMITTED INPATIENT Is pt being admited?: Yes Does the pt Need Aspirin: No Condition: Critical Time of Disposition: 00:06
[2021-07-06] MEDS ORDERED: IPRATROPIUM 0.02% NEBU 2.5 ML IH ONE ×2 (22:25→22:54)
[2021-07-06] MEDS ORDERED: ALBUTEROL 2.5 MG/3 ML NEBU IH ONE ×2 (22:25→22:54)
[2021-07-06] MEDS ORDERED: MAGNESIUM SULFATE 2 GM/50 ML BAG IV ONE (22:25)
--- NOTE | 2021-07-06 22:50 | XRay Report ---
CHEST 1 VIEW INDICATION / CLINICAL INFORMATION: Dyspnea. FINDINGS: SUPPORT DEVICES: None. HEART / MEDIASTINUM: No significant abnormality. LUNGS / PLEURA: No significant pulmonary or pleural abnormality. No pneumothorax. ADDITIONAL FINDINGS: No significant additional findings. IMPRESSION: 1. No acute findings. Signer Name: Joesph Michele MD Signed: 07/06/2021 10:45 PM Workstation Name: [id number]
[2021-07-06 23:16] LABS: Alanine Aminotransferase 17 units/L (7-56); Albumin 4.5 g/dL (3.9-5); BUN/Creatinine Ratio 13; Blood Urea Nitrogen 13 mg/dL (9-20); Calcium 9.5 mg/dL (8.4-10.2); Hemolysis Index 3
[2021-07-06 23:35] LABS: Basophils # (Auto) 0.1 K/mm3 (0.0-0.1); Basophils % (Auto) 0.7 % (0.0-1.8); Eosinophils # (Auto) 0.4 K/mm3 (0.0-0.4); Eosinophils % (Auto) 4.8 % (0.0-4.3); Hematocrit 45.8 % (35.5-45.6); Hemoglobin 16.2 gm/dl (11.8-15.2); Lymphocytes # (Auto) 1.2 K/mm3 (1.2-5.4); Lymphocytes % (Auto) 13.8 % (13.4-35.0); Mean Corpuscular HGB Conc 35 % (32-34); Mean Corpuscular Volume 88 fl (84-94); Monocytes # (Auto) 0.4 K/mm3 (0.0-0.8); Monocytes % (Auto) 4.7 % (0.0-7.3); Platelet Count 247 K/mm3 (140-440); Red Blood Count 5.17 M/mm3 (3.65-5.03); Red Cell Distribution Width 12.5 % (13.2-15.2)
[2021-07-07] MEDS ORDERED: ACETAMINOPHEN 325 MG TAB PO PRN (00:58)
[2021-07-07] MEDS ORDERED: HYDROmorphone 1 MG/1 ML INJ IV PRN (00:58)
[2021-07-07] MEDS ORDERED: ONDANSETRON 4 MG/2 ML INJ IV PRN (00:58)
[2021-07-07] MEDS ORDERED: oxyCODONE /ACETAMINOPHEN 5-325MG TAB PO PRN (00:58)
[2021-07-07] MEDS ORDERED: ALBUTEROL 2.5 MG/3 ML NEBU IH PRN (00:58)
[2021-07-07] MEDS ORDERED: BENZONATATE 100 MG CAP PO PRN (01:00)
[2021-07-07] MEDS ORDERED: ALBUTEROL SULFATE 0.63 MG/3 ML IH PRN (01:00)
--- NOTE | 2021-07-07 01:05 | History and Physical Report ---
History of Present Illness Date of examination: 07/07/21 Date of admission: 07/07/21 Chief complaint: Shortness of breath Acute asthma exacerbation History of present illness: 45-year-old male with past medical history of asthma was brought to the emergency room because of asthma attack and difficulties breathing. Patient states he has been having difficulty breathing for 1 week. Patient states he has not seen a doctor for many years. Patient states been using old albuterol inhalers. Patient was at work and went into an asthma attack and his boss called 911. Patient was brought in by EMS. Patient was given albuterol 5 mg and Decadron 10 mg IV. Patient states he still having significant difficulties breathing. Patient states he feels he cannot catch his breath. Patient denies fever and chills. Patient states he has an occasional cough. Patient states the cough is dry. Patient states that shortness of breath better with rest and worse with exertion. patient was found to be hypoxic and placed on 5 L of oxygen. In the emergency room patient is found to have acute asthma exacerbation. Med rec is done. Advance discharge process is initiated Past History Past Medical History: other (Asthma) Medications and Allergies Allergies Allergy/AdvReac Type Severity Reaction Status Date / Time tomato Allergy Shortness Verified 02/09/21 15:02 of Breath Home Medications Medication Instructions Recorded Confirmed Last Taken Type predniSONE [Deltasone] 50 mg PO QDAY #5 tablet 10/06/20 Unknown Rx Acetaminophen [Non-Aspirin Extra 500 mg PO Q6HR PRN #30 tablet 02/09/21 Unknown Rx Strength] Albuterol Sulfate [Albuterol 0.63% 0.63 mg IH Q4HR PRN #2 ml 02/09/21 Unknown Rx NEBS] Albuterol Sulfate [Proair 90 mcg IH Q4HR PRN #2 aer.pow.ba 02/09/21 Unknown Rx Respiclick] Benzonatate [Tessalon Perles] 100 mg PO Q8HR PRN #30 capsule 02/09/21 Unknown Rx Famotidine [Pepcid] 20 mg PO BID #10 tablet 02/09/21 Unknown Rx Ibuprofen [Motrin] 600 mg PO Q8H PRN #30 tablet 02/09/21 Unknown Rx predniSONE [Deltasone] 40 mg PO QDAY #8 tab 02/09/21 Unknown Rx Review of Systems All systems: negative Cardiovascular: shortness of breath, dyspnea on exertion Respiratory: cough, shortness of breath, dyspnea on exertion, wheezing Exam - Constitutional Vitals: Temp Pulse Resp BP Pulse Ox 98.2 F 112 H 20 119/68 98 07/06/21 21:54 07/07/21 00:31 07/07/21 00:31 07/07/21 00:31 07/07/21 00:31 General appearance: Present: no acute distress, well-nourished - EENT Eyes: Present: PERRL ENT: hearing intact, clear oral mucosa - Neck Neck: Present: supple, normal ROM - Respiratory Respiratory effort: labored Respiratory: bilateral: wheezing - Cardiovascular Heart Sounds: Present: S1 & S2. Absent: rub, click - Extremities Extremities: pulses symmetrical, No edema Peripheral Pulses: within normal limits - Abdominal General gastrointestinal: Present: soft, non-tender, non-distended, normal bowel sounds Male genitourinary: Present: normal - Integumentary Integumentary: Present: clear, warm, dry - Musculoskeletal Musculoskeletal: gait normal, strength equal bilaterally - Psychiatric Psychiatric: appropriate mood/affect, intact judgment & insight - Neurologic Neurologic: CNII-XII intact, moves all extremities Results - Labs CBC & Chem 7: 07/06/21 22:32 07/06/21 22:32 Labs: Laboratory Last Values WBC 8.8 K/mm3 (4.5-11.0) 07/06/21 22:32 RBC 5.17 M/mm3 (3.65-5.03) H 07/06/21 22:32 Hgb 16.2 gm/dl (11.8-15.2) H 07/06/21 22:32 Hct 45.8 % (35.5-45.6) H 07/06/21 22:32 MCV 88 fl (84-94) 07/06/21 22:32 MCH 31 pg (28-32) 07/06/21 22:32 MCHC 35 % (32-34) H 07/06/21 22:32 RDW 12.5 % (13.2-15.2) L 07/06/21 22:32 Plt Count 247 K/mm3 (140-440) 07/06/21 22:32 Lymph % (Auto) 13.8 % (13.4-35.0) 07/06/21 22:32 [place] % (Auto) 4.7 % (0.0-7.3) 07/06/21 22:32 Eos % (Auto) 4.8 % (0.0-4.3) H 07/06/21 22:32 Baso % (Auto) 0.7 % (0.0-1.8) 07/06/21 22:32 Lymph # (Auto) 1.2 K/mm3 (1.2-5.4) 07/06/21 22:32 [place] # (Auto) 0.4 K/mm3 (0.0-0.8) 07/06/21 22:32 Eos # (Auto) 0.4 K/mm3 (0.0-0.4) 07/06/21 22:32 Baso # (Auto) 0.1 K/mm3 (0.0-0.1) 07/06/21 22:32 Seg Neutrophils % 76.0 % (40.0-70.0) H 07/06/21 22:32 Seg Neutrophils # 6.7 K/mm3 (1.8-7.7) 07/06/21 22:32 Sodium 136 mmol/L (137-145) L 07/06/21 22:32 Potassium 4.1 mmol/L (3.6-5.0) 07/06/21 22:32 Chloride 101.4 mmol/L (98-107) 07/06/21 22:32 Carbon Dioxide 21 mmol/L (22-30) L 07/06/21 22:32 Anion Gap 18 mmol/L 07/06/21 22:32 BUN 13 mg/dL (9-20) 07/06/21 22:32 Creatinine 1.0 mg/dL (0.8-1.3) 07/06/21 22:32 Estimated GFR > 60 ml/min 07/06/21 22:32 BUN/Creatinine Ratio 13 % 07/06/21 22:32 Glucose 99 mg/dL (75-100) 07/06/21 22:32 Calcium 9.5 mg/dL (8.4-10.2) 07/06/21 22:32 Total Bilirubin 0.80 mg/dL (0.1-1.2) 07/06/21 22:32 AST 17 units/L (5-40) 07/06/21 22:32 ALT 17 units/L (7-56) 07/06/21 22:32 Alkaline Phosphatase 85 units/L (35-129) 07/06/21 22:32 Total Protein 7.0 g/dL (6.3-8.2) 07/06/21 22:32 Albumin 4.5 g/dL (3.9-5) 07/06/21 22:32 Albumin/Globulin Ratio 1.8 % 07/06/21 22:32 - Imaging and Cardiology Chest x-ray: report reviewed Assessment and Plan VTE prophylaxis?: Chemical Plan of care discussed with patient/family: Yes - Patient Problems (1) Status asthmaticus Current Visit: Yes Status: Acute Qualifiers: Asthma severity: severe Asthma persistence: unspecified Qualified Code(s): J45.902 - Unspecified asthma with status asthmaticus Plan to address problem: Admit the patient to the medical floor. Put the patient on 5 L of oxygen. DuoNeb by nebulizer every 4 hours. Albuterol via nebulizer every 4 hours as needed. Solu-Medrol 40 mg IV every 6 hours. Singular 10 mg p.o. daily. Zithromax 500 mg IV daily. If needed will consult pulmonary (2) Respiratory failure Current Visit: Yes Status: Acute Qualifiers: Chronicity: acute Respiratory failure complication: hypoxia Qualified Code(s): J96.01 - Acute respiratory failure with hypoxia Plan to address problem: Put the patient on 5 L of oxygen. DuoNeb by nebulizer every 4 hours. Albuterol via nebulizer every 4 hours as needed. Solu-Medrol 40 mg IV every 6 hours. Singular 10 mg p.o. daily. Zithromax 500 mg IV daily. If needed will consult pulmonary (3) Shortness of breath Current Visit: Yes Status: Acute Plan to address problem: Put the patient on 5 L of oxygen. DuoNeb by nebulizer every 4 hours. Albuterol via nebulizer every 4 hours as needed. (4) DVT prophylaxis Current Visit: Yes Status: Acute Plan to address problem: Heparin 5000 units subcu every 8 hours for DVT prophylaxis. Pepcid 20 mg p.o. twice daily for GI prophylaxis. Patient is a full code
[2021-07-07] MEDS ORDERED: methylPREDNISolone Sod Suc 125 MG in SODIUM CHLORIDE 0.9% 100 ML IV ONE (05:50)
[2021-07-07] MEDS ORDERED: methylPREDNISolone Sod Succinate 125 MG/2 ML INJ ONE (05:52)
[2021-07-07] MEDS ORDERED: methylPREDNISolone Sod Succinate 125 MG/2 ML INJ IV ONE (05:54)
[2021-07-07] MEDS: IPRATROPIUM/ALBUTEROL SULFATE 3 ML AMPUL.NEB IH SCH ×3 (06:02→13:43)
[2021-07-07] MEDS: methylPREDNISolone Sod Succinate 40 MG/1 ML INJ IV SCH ×2 (06:49→12:02)
[2021-07-07] MEDS: HEPARIN 5,000 UNIT/1 ML VIAL SUB-Q SCH ×2 (06:49→13:43)
[2021-07-07] MEDS ORDERED: FAMOTIDINE 20 MG TAB PO SCH (10:00)
--- NOTE | 2021-07-07 15:31 | Discharge Summary ---
Providers - Providers Date of Admission: 07/07/21 00:58 Date of discharge: 07/07/21 Attending physician: ANIBAL CLINTON Primary care physician: MARKETING OFFICER Hospitalization Condition: Critical Disposition: 01 HOME / SELF CARE / HOMELESS Final Discharge Diagnosis (Prints w/discharge instructions): --Status asthmaticus. --Acute hypoxic Respiratory failure Time spent for discharge: 34 minutes Core Measure Documentation - Palliative Care Palliative Care/ Comfort Measures: Not Applicable - Core Measures Any of the following diagnoses?: none Exam - Constitutional Vitals: Temp Pulse Resp BP Pulse Ox 98.2 F 110 H 20 114/74 96 07/06/21 21:54 07/07/21 13:58 07/07/21 13:58 07/07/21 13:58 07/07/21 13:58 Plan Activity: advance as tolerated Weight Bearing Status: Weight Bear as Tolerated Diet: low fat, low salt Follow up with: PRIMARY CARE, [Primary Care Provider] - 3-5 Days Prescriptions: Montelukast [Singulair] 10 mg PO QHS #30 tablet Albuterol Sulfate [Albuterol 0.63% NEBS] 0.63 mg IH Q4HR PRN 30 Days PRN Reason: Wheezing predniSONE [Deltasone] 50 mg PO QDAY #5 tablet Albuterol Sulfate [Proair Respiclick] 90 mcg IH Q4HR PRN #2 aer.pow.ba PRN Reason: Wheezing
[2021-07-07 16:01] VITALS: BP 124/89
[2021-07-07] MEDS ORDERED: MONTELUKAST 10 MG TAB PO SCH (22:00)
== END 2021-07-07 16:25 | disposition home or self-care (01) ==
LOC: ED 21:28 → 3A 07-07 00:58
PROVIDERS: ADMIT Hospitalist; ATTEND Internal Medicine
DX: J96.01 Acute respiratory failure with hypoxia (principal); J45.902 Unspecified asthma with status asthmaticus; M10.9 Gout, unspecified; Z79.82 Long term (current) use of aspirin; Z91.14 Patient's other noncompliance with medication regimen
CPT/HCPCS: 36415; 71045; 80053; 85025; 94640; 94644; 94760; 96365; 96372; 96375; 96376; 99291; G0378; J1644; J2920; J2930; J3475

== ENCOUNTER 2021-08-02 00:09 | Emergency (ER) | payer OTHER ==
[2021-08-02] MEDS ORDERED: HYDROcodone/ACETAMINOPHEN 7.5-325MG TAB PO ONE (02:09)
[2021-08-02] MEDS ORDERED: methylPREDNISolone Sod Succinate 125 MG/2 ML INJ IM ONE (02:09)
[2021-08-02] MEDS ORDERED: KETOROLAC 30 MG/1 ML INJ IM ONE (02:09)
[2021-08-02] MEDS ORDERED: ONDANSETRON 4 MG ODT TAB PO ONE (02:10)
--- NOTE | 2021-08-02 02:26 | Emergency Department Report ---
ED Extremity Problem HPI - General Chief complaint: Extremity Injury, Lower Stated complaint: RT SIDE HIP/LEG PAIN/GOUT Source: patient Mode of arrival: Ambulatory Limitations: No Limitations - History of Present Illness Initial comments: Patient is a 45-year-old male history of asthma and chronic gouty arthropathy who presents to the ED with acute exacerbation of his chronic gout pain characterized by severe right foot and right ankle pain as well as right knee and right hip pain for the last 1 week. Patient states that he ran out of his medications for gout "a while ago". Patient states that the pain is persistent, constant and that he has not been able to sleep because of worsening pain. Patient denies dizziness, syncope, fall, traumatic injury, heavy lifting, chest pain or shortness of breath, abdominal pain, nausea and vomiting, numbness and tingling or weakness of lower extremities bilaterally. MD Complaint: extremity pain (Right hip pain, right knee and right ankle and foot pain), joint paint (Right foot, right ankle, right knee and right hip pain) -: Gradual, week(s) (1) Location: right, lower extremity (Right hip, right knee, right ankle and right foot pain) History of Same: No -: No myalgia, Yes arthralgia, No fever, No associated dyspnea, No associated chest pain Radiation: distal Severity scale (0 -10): 7 Quality: aching, sharp Consistency: constant Improves with: nothing Worsens with: weight bearing, walking, exertion, palpation Associated Symptoms: denies other symptoms, arthralgias. denies: chest pain, shortness of breath, fever, myalgias, rash - Related Data Previous Rx's Medication Instructions Recorded Last Taken Type Benzonatate [Tessalon Perles] 100 mg PO Q8HR PRN #30 capsule 02/09/21 Unknown Rx Albuterol Sulfate [Albuterol 0.63% 0.63 mg IH Q4HR PRN 30 Days 07/07/21 Unknown Rx NEBS] Albuterol Sulfate [Proair 90 mcg IH Q4HR PRN #2 aer.pow.ba 07/07/21 Unknown Rx Respiclick] Montelukast [Singulair] 10 mg PO QHS #30 tablet 07/07/21 Unknown Rx Colchicine 0.6 mg PO Q12H #30 tablet 08/02/21 Unknown Rx Indomethacin 50 mg PO Q8H PRN #60 capsule 08/02/21 Unknown Rx allopurinoL [Zyloprim] 100 mg PO QDAY #30 tablet 08/02/21 Unknown Rx predniSONE [Deltasone] 50 mg PO QDAY #5 tablet 08/02/21 Unknown Rx predniSONE [Deltasone] 60 mg PO QDAY #15 tab 08/02/21 Unknown Rx Allergies Allergy/AdvReac Type Severity Reaction Status Date / Time tomato Allergy Shortness Verified 02/09/21 15:02 of Breath ED Review of Systems ROS: Stated complaint: RT SIDE HIP/LEG PAIN/GOUT Other details as noted in HPI Constitutional: denies: chills, fever Eyes: denies: eye pain, eye discharge, vision change ENT: denies: ear pain, throat pain Respiratory: denies: cough, shortness of breath, wheezing Cardiovascular: denies: chest pain, palpitations Endocrine: no symptoms reported Gastrointestinal: denies: abdominal pain, nausea, diarrhea Genitourinary: denies: urgency, dysuria Musculoskeletal: arthralgia (Right hip pain, right knee pain, right foot and right ankle pain). denies: back pain, joint swelling Skin: denies: rash, lesions Neurological: denies: headache, weakness, paresthesias Psychiatric: denies: anxiety, depression Hematological/Lymphatic: denies: easy bleeding, easy bruising ED Past Medical Hx - Past Medical History Hx Asthma: Yes Additional medical history: gout, Chiari malformation I October 2017 - Surgical History Additional Surgical History: Chiari malformation surgery 11/2017 - Social History Smoking Status: Never Smoker Substance Use Type: None, Alcohol - Medications Home Medications: Home Medications Medication Instructions Recorded Confirmed Last Taken Type Benzonatate [Tessalon Perles] 100 mg PO Q8HR PRN #30 capsule 02/09/21 Unknown Rx Albuterol Sulfate [Albuterol 0.63% 0.63 mg IH Q4HR PRN 30 Days 07/07/21 Unknown Rx NEBS] Albuterol Sulfate [Proair 90 mcg IH Q4HR PRN #2 aer.pow.ba 07/07/21 Unknown Rx Respiclick] Montelukast [Singulair] 10 mg PO QHS #30 tablet 07/07/21 Unknown Rx Colchicine 0.6 mg PO Q12H #30 tablet 08/02/21 Unknown Rx Indomethacin 50 mg PO Q8H PRN #60 capsule 08/02/21 Unknown Rx allopurinoL [Zyloprim] 100 mg PO QDAY #30 tablet 08/02/21 Unknown Rx predniSONE [Deltasone] 50 mg PO QDAY #5 tablet 08/02/21 Unknown Rx predniSONE [Deltasone] 60 mg PO QDAY #15 tab 08/02/21 Unknown Rx ED Physical Exam - General Limitations: No Limitations General appearance: alert, in no apparent distress - Head Head exam: Present: atraumatic, normocephalic, normal inspection - Eye Eye exam: Present: normal appearance, PERRL, EOMI Pupils: Present: normal accommodation - ENT ENT exam: Present: normal exam, normal orophraynx, mucous membranes moist, TM's normal bilaterally, normal external ear exam - Neck Neck exam: Present: normal inspection, full ROM - Respiratory Respiratory exam: Present: normal lung sounds bilaterally. Absent: respiratory distress, wheezes, rales, rhonchi, chest wall tenderness, accessory muscle use, decreased breath sounds, other - Cardiovascular Cardiovascular Exam: Present: regular rate, normal rhythm, normal heart sounds. Absent: systolic murmur, diastolic murmur, rubs, gallop - GI/Abdominal GI/Abdominal exam: Present: soft, normal bowel sounds. Absent: tenderness, guarding, hyperactive bowel sounds, hypoactive bowel sounds, organomegaly - Extremities Exam Extremities exam: Present: normal inspection, full ROM, tenderness (Palpable right foot, right ankle, right knee and right hip tenderness), normal capillary refill. Absent: pedal edema, joint swelling, calf tenderness - Back Exam Back exam: Present: normal inspection, full ROM. Absent: tenderness, CVA tenderness (R), muscle spasm, paraspinal tenderness, vertebral tenderness - Neurological Exam Neurological exam: Present: alert, oriented X3, CN II-XII intact, normal gait, reflexes normal - Psychiatric Psychiatric exam: Present: normal affect, normal mood - Skin Skin exam: Present: warm, dry, intact, normal color. Absent: rash ED Course Vital Signs 08/02/21 00:35 Temperature 98.2 F Pulse Rate 95 H Respiratory 16 Rate Blood Pressure 114/84 [Right] O2 Sat by Pulse 94 Oximetry ED Medical Decision Making - Medical Decision Making This is a 45-year-old male history of asthma and chronic gouty arthropathy who presents to the ED with acute exacerbation of his chronic gout pain characterized by severe right foot and right ankle pain as well as right knee and right hip pain for the last 1 week. Patient states that he ran out of his medications for gout "a while ago". Patient states that the pain is persistent, constant and that he has not been able to sleep because of worsening pain. In the ED, patient is alert and oriented x3 and is not in any distress but appears to be in pain. On reevaluation, patient's pain is well controlled. Patient was discharged home on medications and advised to follow-up with his primary care physician in 7 to 10 days for reevaluation. Patient was advised to return to the ED immediately if symptoms get worse. - Differential Diagnosis gouty arthropathy; chronic pain, osteoarthritis Critical care attestation.: If time is entered above; I have spent that time in minutes in the direct care of this critically ill patient, excluding procedure time. ED Disposition Clinical Impression: Chronic gouty arthropathy, Chronic pain disorder Disposition: HOME / SELF CARE / HOMELESS Is pt being admited?: No Does the pt Need Aspirin: No Condition: Stable Instructions: Low-Purine Eating Plan, Pain Medicine Instructions, [id number] Additional Instructions: Take medication with food, drink plenty of fluids and follow-up with your primary care physician in 7 to 10 days for reevaluation. Return to the ED immediately if symptoms get worse. Prescriptions: Colchicine 0.6 mg PO Q12H #30 tablet predniSONE [Deltasone] 60 mg PO QDAY #15 tab predniSONE [Deltasone] 50 mg PO QDAY #5 tablet Indomethacin 50 mg PO Q8H PRN #60 capsule PRN Reason: Pain , Severe (7-10) allopurinoL [Zyloprim] 100 mg PO QDAY #30 tablet Referrals: [facility] [Provider Group] - 3-5 Days Time of Disposition: 02:31 Print Language: SYRIAC
[2021-08-02 03:11] VITALS: BP 126/89
== END 2021-08-02 03:12 | disposition home or self-care (01) ==
LOC: ED 00:09
DX: M1A.9XX0 Chronic gout, unspecified, without tophus (tophi) (principal); G89.29 Other chronic pain; J45.909 Unspecified asthma, uncomplicated; Z91.018 Allergy to other foods
CPT/HCPCS: 96372; 99282; J1885; J2930; Q0162

== ENCOUNTER 2021-10-02 14:31 | Emergency (ER) | payer OTHER ==
[2021-10-02 15:20] VITALS: BP 127/78
[2021-10-02] MEDS ORDERED: dexAMETHasone 20 MG/5 ML VIAL IM ONE (17:40)
[2021-10-02] MEDS ORDERED: KETOROLAC 60 MG/2 ML INJ IM ONE (17:40)
--- NOTE | 2021-10-02 17:46 | Emergency Department Report ---
ED Extremity Problem HPI - General Chief complaint: Extremity Problem,Nontraumatic Stated complaint: GOUT Time Seen by Provider: 10/02/21 17:40 Source: patient Mode of arrival: Ambulatory Limitations: No Limitations - History of Present Illness Initial comments: Patient is a 45-year-old male presents emergency room complaints of acute gout flare that began this morning. Patient reports that he feels the pain in his right big toe, right foot, right ankle, right knee. He reports that yesterday he ate pork for New Year's and believes this is what set off his flare. He reports he has not had a flare since May 2021. He denies any fall or injury. He denies any fever, vomiting, numbness, weakness. He reports he has pain with ambulation. PMHx asthma. Allergy to tomato. Severity scale (0 -10): 10 - Related Data Previous Rx's Medication Instructions Recorded Last Taken Type Benzonatate [Tessalon Perles] 100 mg PO Q8HR PRN #30 capsule 02/09/21 Unknown Rx Albuterol Sulfate [Albuterol 0.63% 0.63 mg IH Q4HR PRN 30 Days 07/07/21 Unknown Rx NEBS] Albuterol Sulfate [Proair 90 mcg IH Q4HR PRN #2 aer.pow.ba 07/07/21 Unknown Rx Respiclick] Montelukast [Singulair] 10 mg PO QHS #30 tablet 07/07/21 Unknown Rx Indomethacin 50 mg PO Q8H PRN #60 capsule 08/02/21 Unknown Rx allopurinoL [Zyloprim] 100 mg PO QDAY #30 tablet 08/02/21 Unknown Rx predniSONE [Deltasone] 50 mg PO QDAY #5 tablet 08/02/21 Unknown Rx predniSONE [Deltasone] 60 mg PO QDAY #15 tab 08/02/21 Unknown Rx Colchicine 0.6 mg PO Q12H #3 tablet 10/02/21 Unknown Rx Indomethacin [Indocin] 25 mg PO TID #21 capsule 10/02/21 Unknown Rx predniSONE [Deltasone] 40 mg PO BID 5 Days #10 tablet 10/02/21 Unknown Rx Allergies Allergy/AdvReac Type Severity Reaction Status Date / Time tomato Allergy Shortness Verified 02/09/21 15:02 of Breath ED Review of Systems ROS: Stated complaint: GOUT Other details as noted in HPI Comment: All other systems reviewed and negative ED Past Medical Hx - Past Medical History Hx Asthma: Yes Additional medical history: gout, Chiari malformation I October 2017 - Surgical History Additional Surgical History: Chiari malformation surgery 11/2017 - Social History Smoking Status: Never Smoker Substance Use Type: None, Alcohol - Medications Home Medications: Home Medications Medication Instructions Recorded Confirmed Last Taken Type Benzonatate [Tessalon Perles] 100 mg PO Q8HR PRN #30 capsule 02/09/21 Unknown Rx Albuterol Sulfate [Albuterol 0.63% 0.63 mg IH Q4HR PRN 30 Days 07/07/21 Unknown Rx NEBS] Albuterol Sulfate [Proair 90 mcg IH Q4HR PRN #2 aer.pow.ba 07/07/21 Unknown Rx Respiclick] Montelukast [Singulair] 10 mg PO QHS #30 tablet 07/07/21 Unknown Rx Indomethacin 50 mg PO Q8H PRN #60 capsule 08/02/21 Unknown Rx allopurinoL [Zyloprim] 100 mg PO QDAY #30 tablet 08/02/21 Unknown Rx predniSONE [Deltasone] 50 mg PO QDAY #5 tablet 08/02/21 Unknown Rx predniSONE [Deltasone] 60 mg PO QDAY #15 tab 08/02/21 Unknown Rx Colchicine 0.6 mg PO Q12H #3 tablet 10/02/21 Unknown Rx Indomethacin [Indocin] 25 mg PO TID #21 capsule 10/02/21 Unknown Rx predniSONE [Deltasone] 40 mg PO BID 5 Days #10 tablet 10/02/21 Unknown Rx ED Physical Exam - General Limitations: No Limitations General appearance: alert, in no apparent distress - Head Head exam: Present: atraumatic, normocephalic - Eye Eye exam: Present: normal appearance - ENT ENT exam: Present: mucous membranes moist - Extremities Exam Extremities exam: Present: other (ttp to the right big toe, right foot/ankle, mild increased warmth, mild edema, no erythema, FROM, no deformity, neurovascularly intact) - Neurological Exam Neurological exam: Present: alert, oriented X3 - Psychiatric Psychiatric exam: Present: normal affect, normal mood - Skin Skin exam: Present: warm, dry, intact ED Course Vital Signs 10/02/21 15:18 Temperature 97.6 F Pulse Rate 93 H Respiratory 16 Rate Blood Pressure 127/78 [Right] O2 Sat by Pulse 98 Oximetry ED Medical Decision Making - Medical Decision Making Patient is a 45-year-old male presents emergency room complaints of acute gout flare that began this morning. Patient reports that he feels the pain in his right big toe, right foot, right ankle, right knee. He reports that yesterday he ate pork for New Year's and believes this is what set off his flare. He reports he has not had a flare since May 2021. He denies any fall or injury. He denies any fever, vomiting, numbness, weakness. He reports he has pain with ambulation. Patient denies any past medical history or any history of diabetes or renal disease. Allergy to tomato. Vitals are stable. On exam:ttp to the right big toe, right foot/ankle, mild increased warmth, mild edema, no erythema, FROM, no deformity, neurovascularly intact. Examination appears likely consistent with gout. Patient has had no acute trauma. Do not suspect cellulitis or septic joint. Patient given Toradol and dexamethasone IM while the emergency department with improvement of his symptoms. Advised patient please take medication as prescribed. Follow-up with your primary care doctor. Please follow the diet for gout. Return to emergency room for any new or worsening symptoms. Critical care attestation.: If time is entered above; I have spent that time in minutes in the direct care of this critically ill patient, excluding procedure time. ED Disposition Clinical Impression: Gout flare Qualifiers: Gout site: foot Gout etiology: unspecified cause Laterality: right Qualified Code(s): M10.9 - Gout, unspecified Disposition: 01 HOME / SELF CARE / HOMELESS Is pt being admited?: No Does the pt Need Aspirin: No Condition: Stable Instructions: Low-Purine Eating Plan Additional Instructions: please take medication as prescribed. Follow-up with your primary care doctor. Please follow the diet for gout. Return to emergency room for any new or worsening symptoms. Prescriptions: Colchicine 0.6 mg PO Q12H #3 tablet predniSONE [Deltasone] 40 mg PO BID 5 Days #10 tablet Indomethacin [Indocin] 25 mg PO TID #21 capsule Referrals: KARL VILLALBA MD [Staff Physician] - 3-5 Days [facility] [Provider Group] - 3-5 Days Time of Disposition: 17:44 Print Language: KINYARWANDA
== END 2021-10-02 18:25 | disposition home or self-care (01) ==
LOC: ED 14:31
DX: M10.9 Gout, unspecified (principal); J45.909 Unspecified asthma, uncomplicated; Z91.018 Allergy to other foods
CPT/HCPCS: 96372; 99282; J1100; J1885

== ENCOUNTER 2021-11-05 23:09 | Emergency (ER) | payer OTHER ==
[2021-11-06 00:28] VITALS: BP 128/85
[2021-11-06] MEDS ORDERED: IBUPROFEN 600 MG TAB PO ONE (01:13)
[2021-11-06] MEDS ORDERED: COLCHICINE 0.6 MG TAB PO ONE (01:13)
[2021-11-06] MEDS ORDERED: oxyCODONE /ACETAMINOPHEN 5-325MG TAB PO ONE (01:13)
[2021-11-06] MEDS ORDERED: predniSONE 20 MG TAB PO ONE (01:13)
--- NOTE | 2021-11-06 01:38 | Emergency Department Report ---
ED Extremity Problem HPI - General Chief complaint: Extremity Injury, Lower Stated complaint: GOUT/LEG PAIN Source: patient Mode of arrival: Ambulatory Limitations: No Limitations - History of Present Illness Initial comments: Patient is a 46-year-old male with a history of asthma, chronic gouty arthropathy and Chiari type I malformation who presents to the ED with complaint of acute exacerbation of his chronic pain characterized by left ankle and knee pain for the last 3 days. Patient states that he ran out of his medication for gout. Patient states that the pain has especially worsened in the last 24 hours such that any weightbearing on the left knee or left ankle worsen the pain. Patient states that the pain is typical of his chronic gout during flareups. Patient denies fall, traumatic injury, heavy lifting, chest pain, shortness of breath, fever, chills, nausea, vomiting, low back pain, numbness and tingling or weakness of lower extremities bilaterally. MD Complaint: extremity pain (left knee and ankle; chronic gout flare up), joint paint (left knee and ankle) -: Sudden, days(s) (3) Location: left, lower extremity (Left knee and ankle), knee (Left knee pain), other (Left ankle pain) History of Same: Yes (Chronic gouty arthropathy) -: Yes arthralgia (Left knee and ankle pain) Radiation: distal Severity scale (0 -10): 8 Quality: aching, sharp Consistency: constant Improves with: nothing Worsens with: weight bearing, exertion, palpation Associated Symptoms: denies other symptoms, arthralgias (Left knee and ankle pain). denies: chest pain, shortness of breath, fever, myalgias, rash - Related Data Previous Rx's Medication Instructions Recorded Last Taken Type Benzonatate [Tessalon Perles] 100 mg PO Q8HR PRN #30 capsule 02/09/21 Unknown Rx Albuterol Sulfate [Albuterol 0.63% 0.63 mg IH Q4HR PRN 30 Days 07/07/21 Unknown Rx NEBS] Albuterol Sulfate [Proair 90 mcg IH Q4HR PRN #2 aer.pow.ba 07/07/21 Unknown Rx Respiclick] Montelukast [Singulair] 10 mg PO QHS #30 tablet 07/07/21 Unknown Rx predniSONE [Deltasone] 50 mg PO QDAY #5 tablet 08/02/21 Unknown Rx Indomethacin [Indocin] 25 mg PO TID #21 capsule 10/02/21 Unknown Rx predniSONE [Deltasone] 40 mg PO BID 5 Days #10 tablet 10/02/21 Unknown Rx Colchicine 0.6 mg PO Q12H #15 tablet 11/06/21 Unknown Rx Indomethacin 50 mg PO Q8H PRN #60 capsule 11/06/21 Unknown Rx allopurinoL [Zyloprim] 100 mg PO QDAY #30 tablet 11/06/21 Unknown Rx predniSONE [Deltasone] 60 mg PO QDAY #15 tab 11/06/21 Unknown Rx traMADoL [Ultram] 50 mg PO Q6HR PRN #12 tablet 11/06/21 Unknown Rx Allergies Allergy/AdvReac Type Severity Reaction Status Date / Time tomato Allergy Shortness Verified 02/09/21 15:02 of Breath ED Review of Systems ROS: Stated complaint: GOUT/LEG PAIN Other details as noted in HPI Constitutional: denies: chills, fever Eyes: denies: eye pain, eye discharge, vision change ENT: denies: ear pain, throat pain Respiratory: denies: cough, shortness of breath, wheezing Cardiovascular: denies: chest pain, palpitations Endocrine: no symptoms reported Gastrointestinal: denies: abdominal pain, nausea, diarrhea Genitourinary: denies: urgency, dysuria Musculoskeletal: arthralgia (Left ankle and knee joint pain). denies: back pain, joint swelling Skin: denies: rash, lesions Neurological: denies: headache, weakness, paresthesias Psychiatric: denies: anxiety, depression Hematological/Lymphatic: denies: easy bleeding, easy bruising ED Past Medical Hx - Past Medical History Previous Medical History?: Yes Hx Asthma: Yes Additional medical history: gout, Chiari malformation I October 2017 - Surgical History Past Surgical History?: Yes Additional Surgical History: Chiari malformation surgery 11/2017 - Social History Smoking Status: Never Smoker Substance Use Type: None - Medications Home Medications: Home Medications Medication Instructions Recorded Confirmed Last Taken Type Benzonatate [Tessalon Perles] 100 mg PO Q8HR PRN #30 capsule 02/09/21 Unknown Rx Albuterol Sulfate [Albuterol 0.63% 0.63 mg IH Q4HR PRN 30 Days 07/07/21 Unknown Rx NEBS] Albuterol Sulfate [Proair 90 mcg IH Q4HR PRN #2 aer.pow.ba 07/07/21 Unknown Rx Respiclick] Montelukast [Singulair] 10 mg PO QHS #30 tablet 07/07/21 Unknown Rx predniSONE [Deltasone] 50 mg PO QDAY #5 tablet 08/02/21 Unknown Rx Indomethacin [Indocin] 25 mg PO TID #21 capsule 10/02/21 Unknown Rx predniSONE [Deltasone] 40 mg PO BID 5 Days #10 tablet 10/02/21 Unknown Rx Colchicine 0.6 mg PO Q12H #15 tablet 11/06/21 Unknown Rx Indomethacin 50 mg PO Q8H PRN #60 capsule 11/06/21 Unknown Rx allopurinoL [Zyloprim] 100 mg PO QDAY #30 tablet 11/06/21 Unknown Rx predniSONE [Deltasone] 60 mg PO QDAY #15 tab 11/06/21 Unknown Rx traMADoL [Ultram] 50 mg PO Q6HR PRN #12 tablet 11/06/21 Unknown Rx ED Physical Exam - General Limitations: No Limitations General appearance: alert, in no apparent distress - Head Head exam: Present: atraumatic, normocephalic, normal inspection - Eye Eye exam: Present: normal appearance, PERRL, EOMI Pupils: Present: normal accommodation - ENT ENT exam: Present: normal exam, normal orophraynx, mucous membranes moist, TM's normal bilaterally, normal external ear exam - Neck Neck exam: Present: normal inspection, full ROM - Respiratory Respiratory exam: Present: normal lung sounds bilaterally. Absent: respiratory distress, wheezes, rales, rhonchi, chest wall tenderness, accessory muscle use, decreased breath sounds - Cardiovascular Cardiovascular Exam: Present: regular rate, normal rhythm, normal heart sounds. Absent: systolic murmur, diastolic murmur, rubs, gallop - GI/Abdominal GI/Abdominal exam: Present: soft, normal bowel sounds. Absent: tenderness, guarding, hyperactive bowel sounds, hypoactive bowel sounds, organomegaly - Extremities Exam Extremities exam: Present: normal inspection, full ROM, tenderness (Palpable left knee and left ankle joint tenderness), normal capillary refill. Absent: pedal edema, joint swelling, calf tenderness - Back Exam Back exam: Present: normal inspection, full ROM. Absent: tenderness, CVA tenderness (R), CVA tenderness (L), muscle spasm, paraspinal tenderness, vertebral tenderness - Neurological Exam Neurological exam: Present: alert, oriented X3, CN II-XII intact, normal gait, reflexes normal - Psychiatric Psychiatric exam: Present: normal affect, normal mood - Skin Skin exam: Present: warm, dry, intact, normal color. Absent: rash ED Course Vital Signs 11/06/21 00:24 Temperature 97.6 F Pulse Rate 88 Respiratory 18 Rate Blood Pressure 128/85 O2 Sat by Pulse 95 Oximetry ED Medical Decision Making - Medical Decision Making This is a 46-year-old male with a history of asthma, chronic gouty arthropathy and Chiari type I malformation who presents to the ED with complaint of acute exacerbation of his chronic pain characterized by left ankle and knee pain for the last 3 days. Patient states that he ran out of his medication for gout. Patient states that the pain has especially worsened in the last 24 hours such that any weightbearing on the left knee or left ankle worsen the pain. Patient states that the pain is typical of his chronic gout during flareups. In the ED, patient is alert and oriented x3 and is not in any distress. Patient was treated for pain in the ED patient physical exam findings. Patient symptoms are likely due to gouty arthropathy flareup. Patient was discharged home on pain medications and advised to follow-up with his primary care physician in 7 to 10 days for reevaluation or return to the ED immediately if symptoms get worse. - Differential Diagnosis Gouty arthropathy; degenerative joint disease; muscle strain; bursitis; Critical care attestation.: If time is entered above; I have spent that time in minutes in the direct care of this critically ill patient, excluding procedure time. ED Disposition Clinical Impression: Acute gouty arthropathy, Pain in joint of left knee, Acute left ankle pain, Chronic pain syndrome Disposition: HOME / SELF CARE / HOMELESS Is pt being admited?: No Does the pt Need Aspirin: No Condition: Stable Instructions: Chronic Knee Pain, Adult, [id number], Musculoskeletal Pain, Joint Pain, [id number] Additional Instructions: Your pain is likely due to gouty arthropathy flareup. Therefore take medications with food, drink plenty fluids and follow-up with your primary care physician in 7 to 10 days for reevaluation. Return to the ED immediately if symptoms get worse Prescriptions: Colchicine 0.6 mg PO Q12H #15 tablet predniSONE [Deltasone] 60 mg PO QDAY #15 tab Indomethacin 50 mg PO Q8H PRN #60 capsule PRN Reason: Pain , Severe (7-10) traMADoL [Ultram] 50 mg PO Q6HR PRN #12 tablet PRN Reason: Pain allopurinoL [Zyloprim] 100 mg PO QDAY #30 tablet Referrals: [facility] [Provider Group] - 7-10 days Forms: Work/School Release Form(ED) Time of Disposition: 01:39 Print Language: ARMENIAN
== END 2021-11-06 01:50 | disposition home or self-care (01) ==
LOC: ED 23:09
DX: M10.9 Gout, unspecified (principal); M25.562 Pain in left knee; M25.572 Pain in left ankle and joints of left foot; J45.909 Unspecified asthma, uncomplicated; Z98.890 Other specified postprocedural states; Z79.899 Other long term (current) drug therapy; Z91.02 Food additives allergy status
CPT/HCPCS: 99282

== ENCOUNTER 2022-03-03 19:21 | Observation (INO) | payer OTHER ==
[2022-03-03] MEDS ORDERED: ASPIRIN 325 MG TAB PO ONE (20:10)
--- NOTE | 2022-03-03 20:38 | XRay Report ---
CHEST 2 VIEWS INDICATION / CLINICAL INFORMATION: chest pain. COMPARISON: None available. FINDINGS: SUPPORT DEVICES: None. HEART / MEDIASTINUM: No significant abnormality. LUNGS / PLEURA: No significant pulmonary or pleural abnormality. No pneumothorax. ADDITIONAL FINDINGS: No significant additional findings. IMPRESSION: 1. No acute findings. Signer Name: Efrain Pruitt MD Signed: 03/03/2022 8:33 PM Workstation Name: [id number]
[2022-03-03 21:17] LABS: Basophils % (Auto) 0.4 % (0.0-1.8); Eosinophils # (Auto) 0.8 K/mm3 (0.0-0.4); Eosinophils % (Auto) 10.7 % (0.0-4.3); Hematocrit 46.1 % (35.5-45.6); Hemoglobin 16.1 gm/dl (11.8-15.2); Lymphocytes # (Auto) 2.8 K/mm3 (1.2-5.4); Lymphocytes % (Auto) 36.4 % (13.4-35.0); Mean Corpuscular HGB Conc 35 % (32-34); Mean Corpuscular Volume 86 fl (84-94); Monocytes # (Auto) 0.9 K/mm3 (0.0-0.8); Platelet Count 272 K/mm3 (140-440); Red Blood Count 5.34 M/mm3 (3.65-5.03); Red Cell Distribution Width 12.7 % (13.2-15.2)
[2022-03-03 21:35] LABS: Alanine Aminotransferase 13 units/L (7-56); Albumin 4.7 g/dL (3.9-5); BUN/Creatinine Ratio 17; Blood Urea Nitrogen 19 mg/dL (9-20); Calcium 9.2 mg/dL (8.4-10.2); Hemolysis Index 13
--- NOTE | 2022-03-04 06:21 | Emergency Department Report ---
ED General Adult HPI - General Chief complaint: Chest Pain Stated complaint: My boss thinks im having a heart attack Time Seen by Provider: 03/04/22 06:04 Source: patient, RN notes reviewed, old records reviewed Mode of arrival: Ambulatory Limitations: No Limitations - History of Present Illness Initial comments: The patient was evaluated in the emergency department for symptoms described in the history of present illness. He/she was evaluated in the context of the global COVID-19 pandemic, which necessitated consideration that the patient might be at risk for infection with the virus that causes COVID-19. Institutional protocols and algorithms that pertain to the evaluation of patients at risk for COVID-19 are in a state of rapid change based on information released by regulatory bodies including the CDC and federal and state organizations. These policies and algorithms were followed during the patient's care in the emergency department. Please note that these policies, procedures and recommendations changed on a rapid basis. This is a pleasant and cooperative 46-year-old gentleman who presents to the ER today with a complaint of intermittent left-sided chest pain that moves down his left upper extremity, which is associated with sweating, nausea, and diaphoresis. It is occasionally stress related. This is a new pain for him. He reports a very strong family history of premature coronary artery disease, and he reports that 3 siblings have had major myocardial infarctions. They all have their MIs before the age of 50. He believes that a few of them have from [place]. He denies recent aspirin consumption. He denies travel, surgery, immobilization, DVT/PE risk factors. He does endorse that occasionally his pain is associated with emotional stress. No recent cardiac stress test or catheterization that he is aware of. No additional injuries or complaints. -: days(s) Location: chest Radiation: extremity Severity scale (0 -10): 0 Quality: burning, stabbing, aching Consistency: intermittent Improves with: none Worsens with: other (Occasional stress, occasional) - Related Data Previous Rx's Medication Instructions Recorded Last Taken Type Benzonatate [Tessalon Perles] 100 mg PO Q8HR PRN #30 capsule 02/09/21 Unknown Rx Albuterol Sulfate [Albuterol 0.63% 0.63 mg IH Q4HR PRN 30 Days 07/07/21 Unknown Rx NEBS] Albuterol Sulfate [Proair 90 mcg IH Q4HR PRN #2 [email or web address] 07/07/21 Unknown Rx Respiclick] Montelukast [Singulair] 10 mg PO QHS #30 tablet 07/07/21 Unknown Rx predniSONE [Deltasone] 50 mg PO QDAY #5 tablet 08/02/21 Unknown Rx Indomethacin [Indocin] 25 mg PO TID #21 capsule 10/02/21 Unknown Rx predniSONE [Deltasone] 40 mg PO BID 5 Days #10 tablet 10/02/21 Unknown Rx Colchicine 0.6 mg PO Q12H #15 tablet 11/06/21 Unknown Rx Indomethacin 50 mg PO Q8H PRN #60 capsule 11/06/21 Unknown Rx allopurinoL [Zyloprim] 100 mg PO QDAY #30 tablet 11/06/21 Unknown Rx predniSONE [Deltasone] 60 mg PO QDAY #15 tab 11/06/21 Unknown Rx traMADoL [Ultram] 50 mg PO Q6HR PRN #12 tablet 11/06/21 Unknown Rx Allergies Allergy/AdvReac Type Severity Reaction Status Date / Time tomato Allergy Shortness Verified 03/03/22 20:10 of Breath ED Review of Systems ROS: Stated complaint: LEFT ARM PAIN Other details as noted in HPI Constitutional: diaphoresis. denies: fever Eyes: denies: eye discharge ENT: denies: epistaxis Respiratory: shortness of breath Cardiovascular: chest pain Gastrointestinal: vomiting. denies: abdominal pain, hematemesis, melena, hematochezia Neurological: paresthesias Psychiatric: as per HPI Hematological/Lymphatic: denies: easy bleeding ED Past Medical Hx - Past Medical History Previous Medical History?: Yes Hx Asthma: Yes Additional medical history: gout, Chiari malformation I October 2017 - Surgical History Past Surgical History?: Yes Additional Surgical History: Chiari malformation surgery 11/2017 - Social History Smoking Status: Never Smoker Substance Use Type: None - Medications Home Medications: Home Medications Medication Instructions Recorded Confirmed Last Taken Type Benzonatate [Tessalon Perles] 100 mg PO Q8HR PRN #30 capsule 02/09/21 Unknown Rx Albuterol Sulfate [Albuterol 0.63% 0.63 mg IH Q4HR PRN 30 Days 07/07/21 Unknown Rx NEBS] Albuterol Sulfate [Proair 90 mcg IH Q4HR PRN #2 [email or web address] 07/07/21 Unknown Rx Respiclick] Montelukast [Singulair] 10 mg PO QHS #30 tablet 07/07/21 Unknown Rx predniSONE [Deltasone] 50 mg PO QDAY #5 tablet 08/02/21 Unknown Rx Indomethacin [Indocin] 25 mg PO TID #21 capsule 10/02/21 Unknown Rx predniSONE [Deltasone] 40 mg PO BID 5 Days #10 tablet 10/02/21 Unknown Rx Colchicine 0.6 mg PO Q12H #15 tablet 11/06/21 Unknown Rx Indomethacin 50 mg PO Q8H PRN #60 capsule 11/06/21 Unknown Rx allopurinoL [Zyloprim] 100 mg PO QDAY #30 tablet 11/06/21 Unknown Rx predniSONE [Deltasone] 60 mg PO QDAY #15 tab 11/06/21 Unknown Rx traMADoL [Ultram] 50 mg PO Q6HR PRN #12 tablet 11/06/21 Unknown Rx ED Physical Exam - General Limitations: No Limitations General appearance: alert, obese - Head Head exam: Present: atraumatic, normocephalic - Eye Eye exam: Present: normal appearance, EOMI. Absent: nystagmus - ENT ENT exam: Present: normal exam, normal orophraynx, mucous membranes moist, normal external ear exam - Neck Neck exam: Present: normal inspection, full ROM. Absent: tenderness, meningismus - Respiratory Respiratory exam: Present: normal lung sounds bilaterally. Absent: respiratory distress, wheezes, rales, rhonchi, stridor, decreased breath sounds - Cardiovascular Cardiovascular Exam: Present: regular rate, normal rhythm, normal heart sounds. Absent: bradycardia, tachycardia, irregular rhythm, systolic murmur, diastolic murmur, rubs, gallop - GI/Abdominal GI/Abdominal exam: Present: soft. Absent: distended, tenderness, guarding, rebound, rigid, pulsatile mass - Rectal Rectal exam: Present: deferred - Extremities Exam Extremities exam: Present: normal inspection, full ROM, other (2+ pulses noted in the bilateral upper and lower extremities. There is no palpable cord. negative Homans sign. Muscular compartments are soft. The pelvis is stable.). Absent: pedal edema, calf tenderness - Back Exam Back exam: Present: normal inspection, full ROM. Absent: tenderness, CVA tenderness (R), CVA tenderness (L), paraspinal tenderness, vertebral tenderness - Neurological Exam Neurological exam: Present: alert, oriented X3, other (No facial droop. Tongue midline. Extraocular movements intact bilaterally. Facial sensation intact to light touch in V1, V2, V3 distribution bilaterally. 5 and a 5 strength in 4 extremities. Sensation intact to light touch in 4 extremities.). Absent: motor sensory deficit - Psychiatric Psychiatric exam: Present: normal affect, normal mood - Skin Skin exam: Present: warm, dry, intact, normal color. Absent: rash ED Course Vital Signs 03/03/22 03/04/22 20:08 05:20 Temperature 98.3 F 98.3 F Pulse Rate 67 74 Respiratory 18 16 Rate Blood Pressure 123/87 124/88 [Left] O2 Sat by Pulse 95 96 Oximetry - Reevaluation(s) Reevaluation #1: 03/04/22 07:34 Patient will be treated with aspirin, as needed nitroglycerin, and Protonix ED Medical Decision Making - Lab Data Result diagrams: 03/03/22 20:32 03/03/22 20:32 Vital Signs 03/03/22 03/04/22 20:08 05:20 Temperature 98.3 F 98.3 F Pulse Rate 67 74 Respiratory 18 16 Rate Blood Pressure 123/87 124/88 [Left] O2 Sat by Pulse 95 96 Oximetry Lab Results 03/03/22 03/03/22 03/03/22 Range/Units 20:32 20:32 23:16 WBC 7.8 (4.5-11.0) K/mm3 RBC 5.34 H (3.65-5.03) M/mm3 Hgb 16.1 H (11.8-15.2) gm/dl Hct 46.1 H (35.5-45.6) % MCV 86 (84-94) fl MCH 30 (28-32) pg MCHC 35 H (32-34) % RDW 12.7 L (13.2-15.2) % Plt Count 272 (140-440) K/mm3 Lymph % (Auto) 36.4 H (13.4-35.0) % Garrard % (Auto) 11.0 H (0.0-7.3) % Eos % (Auto) 10.7 H (0.0-4.3) % Baso % (Auto) 0.4 (0.0-1.8) % Lymph # (Auto) 2.8 (1.2-5.4) K/mm3 Garrard # (Auto) 0.9 H (0.0-0.8) K/mm3 Eos # (Auto) 0.8 H (0.0-0.4) K/mm3 Baso # (Auto) 0.0 (0.0-0.1) K/mm3 Seg Neutrophils % 41.5 (40.0-70.0) % Seg Neutrophils # 3.2 (1.8-7.7) K/mm3 Sodium 136 L (137-145) mmol/L Potassium 4.5 (3.6-5.0) mmol/L Chloride 101.1 (98-107) mmol/L Carbon Dioxide 23 (22-30) mmol/L Anion Gap 16 mmol/L BUN 19 (9-20) mg/dL Creatinine 1.1 (0.8-1.3) mg/dL Estimated GFR > 60 ml/min BUN/Creatinine Ratio 17 % Glucose 92 (75-100) mg/dL Calcium 9.2 (8.4-10.2) mg/dL Total Bilirubin 0.60 (0.1-1.2) mg/dL AST 12 (5-40) units/L ALT 13 (7-56) units/L Alkaline Phosphatase 97 (35-129) units/L Troponin T < 0.010 < 0.010 (0.00-0.029) ng/mL Total Protein 7.9 (6.3-8.2) g/dL Albumin 4.7 (3.9-5) g/dL Albumin/Globulin Ratio 1.5 % 03/04/22 Range/Units 03:07 WBC (4.5-11.0) K/mm3 RBC (3.65-5.03) M/mm3 Hgb (11.8-15.2) gm/dl Hct (35.5-45.6) % MCV (84-94) fl MCH (28-32) pg MCHC (32-34) % RDW (13.2-15.2) % Plt Count (140-440) K/mm3 Lymph % (Auto) (13.4-35.0) % Garrard % (Auto) (0.0-7.3) % Eos % (Auto) (0.0-4.3) % Baso % (Auto) (0.0-1.8) % Lymph # (Auto) (1.2-5.4) K/mm3 Garrard # (Auto) (0.0-0.8) K/mm3 Eos # (Auto) (0.0-0.4) K/mm3 Baso # (Auto) (0.0-0.1) K/mm3 Seg Neutrophils % (40.0-70.0) % Seg Neutrophils # (1.8-7.7) K/mm3 Sodium (137-145) mmol/L Potassium (3.6-5.0) mmol/L Chloride (98-107) mmol/L Carbon Dioxide (22-30) mmol/L Anion Gap mmol/L BUN (9-20) mg/dL Creatinine (0.8-1.3) mg/dL Estimated GFR ml/min BUN/Creatinine Ratio % Glucose (75-100) mg/dL Calcium (8.4-10.2) mg/dL Total Bilirubin (0.1-1.2) mg/dL AST (5-40) units/L ALT (7-56) units/L Alkaline Phosphatase (35-129) units/L Troponin T < 0.010 (0.00-0.029) ng/mL Total Protein (6.3-8.2) g/dL Albumin (3.9-5) g/dL Albumin/Globulin Ratio % - EKG Data -: EKG Interpreted by [facility] EKG shows normal: sinus rhythm Rate: normal - EKG Data 03/04/22 07:29 EKG #1 is interpreted as 20: 02 Sinus rhythm, rate 84 bpm. Leftward axis deviation, nonspecific T wave abnormalities. Abnormal EKG. Not a STEMI. When compared to prior EKG from January 2021, appears to be grossly unchanged. Borderline left anterior fascicular block. EKG #2, interpreted by myself at 06: 4 2 Sinus rhythm, rate 77 bpm. Normal axis, T wave abnormalities, abnormal EKG, not a STEMI, appears to be unchanged when compared to prior EKG, with the exception of improvement in left axis deviation. - Radiology Data Radiology results: pending, report reviewed, image reviewed CHEST 2 VIEWS INDICATION / CLINICAL INFORMATION: chest pain. COMPARISON: None available. FINDINGS: SUPPORT DEVICES: None. HEART / MEDIASTINUM: No significant abnormality. LUNGS / PLEURA: No significant pulmonary or pleural abnormality. No pneumothorax. ADDITIONAL FINDINGS: No significant additional findings. IMPRESSION: 1. No acute findings. Signer Name: Efrain Pruitt MD Signed: 03/03/2022 7:33 PM Workstation Name: [id number] - Medical Decision Making Differential diagnosis, include but not limited to: Acute coronary syndrome, anxiety, conversion disorder, peripheral neuropathy, GERD, gastritis, hiatal hernia, pneumonia Assessment and plan: 46-year-old male, with very strong family history of premature coronary artery disease, with very classic chest pain. He is chest pain-free at this time. His EKG is unchanged from prior but abnormal. He is moderate to high risk for major adverse cardiac event as per heart score. Troponin negative. X-ray the chest unremarkable. Not currently tachycardic, tachypneic or hypoxic, denies DVT, pulmonary embolism risk factors, low risk by Wells criteria for pulmonary embolism, and currently PERC negative. He does not take any medications for erectile dysfunction. We have recommended admission to the medical service for accelerated cardiac restratification, stress test versus cardiac catheterization. I discussed this with the patient. He is agreeable to hospitalization and admission. Hospital physician, Dr. Simon, To admit patient to the medical service. Critical care attestation.: If time is entered above; I have spent that time in minutes in the direct care of this critically ill patient, excluding procedure time. ED Disposition Clinical Impression: Acute chest pain, Family history of premature CAD Disposition: ADMITTED INPATIENT Is pt being admited?: Yes Does the pt Need Aspirin: Yes Condition: Good Instructions: Chest Pain (ED) Referrals: KARL VILLALBA MD [Primary Care Provider] - 3-5 Days Heart Score - HEART Score History: Highly suspicious EKG: Non-specific Age: 45-65 Risk factors: 1-2 risk factors Troponin: < normal limit HEART Score: 5 - EKG Read Time Time EKG Completed: 06:40 EKG Read Time: 06:40 - Critical Actions Critical Actions: 4-6 pts:12-16.6% risk of adverse cardiac event. Should be admitted
[2022-03-04] MEDS ORDERED: PANTOPRAZOLE 40 MG INJ IV ONE (06:40)
[2022-03-04] MEDS ORDERED: NITROGLYCERIN 0.4 MG TAB SUBL SL PRN (06:40)
[2022-03-04] MEDS ORDERED: ASPIRIN 325 MG TAB PO ONE (06:54)
[2022-03-04] MEDS ORDERED: ACETAMINOPHEN 325 MG TAB PO PRN (07:40)
[2022-03-04] MEDS ORDERED: ONDANSETRON 4 MG/2 ML INJ IV PRN (07:40)
[2022-03-04] MEDS ORDERED: oxyCODONE /ACETAMINOPHEN 5-325MG TAB PO PRN (07:40)
--- NOTE | 2022-03-04 13:39 | History and Physical Report ---
History of Present Illness Date of examination: 03/04/22 Date of admission: 03/04/22 07:41 Chief complaint: Chest pain History of present illness: Patient is a 46-year-old man past medical history of gout, COPD, and obesity who presented to the ED with complaints of intermittent left-sided chest pain that eventually radiated down his left arm. The patient describes this left-sided chest pain as increasing in intensity with each presentation. The patient endorsed having diaphoresis, nausea, shortness of breath, and uneasiness with his chest pain. Patient described being at work and being at rest when the chest pain (8 out of 10 in pain) presented. With further questioning, the patient admitted to having repeated episodes of chest pain that he "typically ignores". The patient has a significant family history of premature coronary artery disease with at least 3 siblings that have as a result of major myocardial infarctions prior to the age of 50. The patient is a former smoker (approximately 10 pack years) but denies excessive alcohol consumption or illicit drug use. In the ED, the patient was found to be hemodynamically stable with unremarkable troponins x2. His chest x-ray was also unremarkable. Patient is being admitted for chest pain work-up. Past History Past Medical History: COPD, other (Obesity, Chiari malformation status post repair) Past Surgical History: cholecystectomy, Other (Chiari malformation status postrepair (2018)) Social history: single, Lives alone, AND/DNR-allow natural Family history: CAD Medications and Allergies Allergies Allergy/AdvReac Type Severity Reaction Status Date / Time tomato Allergy Shortness Verified 03/03/22 20:10 of Breath Home Medications Medication Instructions Recorded Confirmed Last Taken Type Albuterol Sulfate [Albuterol 0.63% 0.63 mg IH Q4HR PRN 30 Days 07/07/21 03/04/22 Unknown Rx NEBS] allopurinoL [Zyloprim] 100 mg PO QDAY #30 tablet 11/06/21 03/04/22 Unknown Rx Active Meds: Active Medications Acetaminophen (Acetaminophen 325 Mg Tab) 650 mg PO Q4H PRN PRN Reason: Pain MILD(1-3)/Fever >100.5/TRUJILLO Aspirin (Aspirin 81 Mg Tab Chew) 81 mg PO DAILY SHANT Morphine Sulfate (Morphine 4 Mg/1 Ml Inj) 2 mg IV Q4H PRN PRN Reason: Pain , Severe (7-10) Nitroglycerin (Nitroglycerin 0.4 Mg Tab Subl) 0.4 mg SL .Q5MIN PRN PRN Reason: Chest Pain Ondansetron HCl (Ondansetron 4 Mg/2 Ml Inj) 4 mg IV Q8H PRN PRN Reason: Nausea And Vomiting Oxycodone/Acetaminophen (Oxycodone /Acetaminophen 5-325mg Tab) 1 tab PO Q6H PRN PRN Reason: Pain, Moderate (4-6) Last Admin: 03/04/22 09:11 Dose: 1 tab Sodium Chloride (Sodium Chloride 0.9% 10 Ml Flush Syringe) 10 ml IV BID SHANT Last Admin: 03/04/22 10:48 Dose: Not Given Sodium Chloride (Sodium Chloride 0.9% 10 Ml Flush Syringe) 10 ml IV PRN PRN PRN Reason: LINE FLUSH Review of Systems All systems: negative Constitutional: sweats Cardiovascular: chest pain, shortness of breath Gastrointestinal: nausea Musculoskeletal: other (Left arm pain) Exam - Constitutional Vitals: Temp Pulse Resp BP Pulse Ox 97.4 F L 80 18 120/91 95 03/04/22 11:29 03/04/22 11:29 03/04/22 11:29 03/04/22 11:29 03/04/22 11:52 General appearance: Present: no acute distress, well-nourished, obese - EENT Eyes: Present: PERRL, EOM intact ENT: hearing intact, clear oral mucosa, dentition normal - Neck Neck: Present: supple, normal ROM - Respiratory Respiratory effort: normal Respiratory: bilateral: CTA - Cardiovascular Rhythm: regular Heart Sounds: Present: S1 & S2 - Extremities Extremities: no ischemia, pulses intact, pulses symmetrical, No edema, normal temperature, normal color Peripheral Pulses: within normal limits - Abdominal General gastrointestinal: Present: soft, non-tender, non-distended, normal bowel sounds Male genitourinary: Present: deferred - Rectal Rectal Exam: deferred - Integumentary Integumentary: Present: clear, warm, dry - Musculoskeletal Musculoskeletal: strength equal bilaterally - Psychiatric Psychiatric: appropriate mood/affect, memory intact, cooperative - Neurologic Neurologic: CNII-XII intact, moves all extremities - Allied Health Allied health notes reviewed: nursing HEART Score - HEART Score History: Highly suspicious EKG: Non-specific Age: 45-65 Risk factors: 1-2 risk factors Troponin: Troponin T < 0.010 ng/mL (0.00-0.029) 03/04/22 03:07 Troponin: < normal limit HEART Score: 5 - Critical Actions Critical Actions: 4-6 pts:12-16.6% risk of adverse cardiac event. Should be admitted Results - Labs CBC & Chem 7: 03/03/22 20:32 03/03/22 20:32 Labs: Laboratory Last Values WBC 7.8 K/mm3 (4.5-11.0) 03/03/22 20:32 RBC 5.34 M/mm3 (3.65-5.03) H 03/03/22 20:32 Hgb 16.1 gm/dl (11.8-15.2) H 03/03/22 20:32 Hct 46.1 % (35.5-45.6) H 03/03/22 20:32 MCV 86 fl (84-94) 03/03/22 20: MCH 30 pg (28-32) 03/03/22 20: MCHC 35 % (32-34) H 03/03/22 20:32 RDW 12.7 % (13.2-15.2) L 03/03/22:32 Plt Count 272 K/mm3 (140-440) 03/03/22 20:32 Lymph % (Auto) 36.4 % (13.4-35.0) H 03/03/22 20:32 Murray % (Auto) 11.0 % (0.0-7.3) H 03/03/22 20:32 Eos % (Auto) 10.7 % (0.0-4.3) H 03/03/22 20:32 Baso % (Auto) 0.4 % (0.0-1.8) 03/03/22 20:32 Lymph # (Auto) 2.8 K/mm3 (1.2-5.4) 03/03/22 20: Murray # (Auto) 0.9 K/mm3 (0.0-0.8) H 03/03/22 20:32 Eos # (Auto) 0.8 K/mm3 (0.0-0.4) H 03/03/22 20:32 Baso # (Auto) 0.0 K/mm3 (0.0-0.1) 03/03/22 20:32 Seg Neutrophils % 41.5 % (40.0-70.0) 03/03/22 20:32 Seg Neutrophils # 3.2 K/mm3 (1.8-7.7) 03/03/22 20:32 Sodium 136 mmol/L (137-145) L 03/03/22 20:32 Potassium 4.5 mmol/L (3.6-5.0) 03/03/22 20:32 Chloride 101.1 mmol/L (98-107) 03/03/22 20:32 Carbon Dioxide 23 mmol/L (22-30) 03/03/22 20:32 Anion Gap 16 mmol/L 03/03/22 20:32 BUN 19 mg/dL (9-20) 03/03/22 20:32 Creatinine 1.1 mg/dL (0.8-1.3) 03/03/22 20:32 Estimated GFR > 60 ml/min 03/03/22 20:32 BUN/Creatinine Ratio 17 % 03/03/22 20:32 Glucose 92 mg/dL (75-100) 03/03/22 20:32 Calcium 9.2 mg/dL (8.4-10.2) 03/03/22 20:32 Total Bilirubin 0.60 mg/dL (0.1-1.2) 03/03/22 20:32 AST 12 units/L (5-40) 03/03/22 20:32 ALT 13 units/L (7-56) 03/03/22 20:32 Alkaline Phosphatase 97 units/L (35-129) 03/03/22 20:32 Troponin T < 0.010 ng/mL (0.00-0.029) 03/04/22 03:07 Total Protein 7.9 g/dL (6.3-8.2) 03/03/22 20:32 Albumin 4.7 g/dL (3.9-5) 03/03/22 20:32 Albumin/Globulin Ratio 1.5 % 03/03/22 20:32 Rosa/IV: Voiding Method Toilet Assessment and Plan Assessment and plan: Patient is a 46-year-old man past medical history of gout, COPD, and obesity who presented to the ED with complaints of intermittent left-sided chest pain that eventually radiated down his left arm. The patient describes this left-sided chest pain as increasing in intensity with each presentation. The patient endorsed having diaphoresis, nausea, shortness of breath, and uneasiness with his chest pain. Patient described being at work and being at rest when the chest pain (8 out of 10 in pain) presented. With further questioning, the patient admitted to having repeated episodes of chest pain that he "typically ignores". The patient has a significant family history of premature coronary artery disease with at least 3 siblings that have as a result of major myocardial infarctions prior to the age of 50. The patient is a former smoker (approximately 10 pack years) but denies excessive alcohol consumption or illicit drug use. In the ED, the patient was found to be hemodynamically stable with unremarkable troponins x2. His chest x-ray was also unremarkable. Patient is being admitted for chest pain work-up. #Chest pain #Possible unstable angina Unremarkable troponins x2. Pending D-dimer to rule out possible pulmonary embolism. Chest x-ray unremarkable. Status post aspirin 325 mg x 1 in the ED. Continue aspirin 81 mg daily. Pending hemoglobin A1c and lipid profile. Starting atorvastatin 40 mg daily. Cardiology consulted; pending recs. #Obesity #Weight loss counseling #Exercise counseling - BMI 34.9 - Counseled patient on the importance of weight loss, incorporating exercise, and dietary changes (lean meats, fresh fruits and vegetables, and water intake). Patient expresses understanding. - Time: +15 min #Advanced care planning -Disease education conducted, care plan discussed, diagnoses discussed, prognosis discussed, and patient acknowledges understanding with care plan -Time: +30 min Advance Directives: No VTE prophylaxis?: Chemical Plan of care discussed with patient/family: Yes
--- NOTE | 2022-03-04 14:03 | Consultation ---
History of Present Illness Consult date: 03/04/22 Requesting physician: JUAN PABLO ROBLES Consult reason: chest pain History of present illness: Pt is a 46-year-old male with a hx of asthma and tobacco abuse (quit at age 29) who presented with complaints of left-sided chest pain. He states the pain started approximately 2 months ago but was very mild. Episodes have become more severe and sporadic since initial onset. Pain has been constant for the past 2 days. He describes the pain as a dull, achy sensation on the left side of his chest. Over the past 2 days he has also noticed radiation to his left arm, including a throbbing feeling in his arm and occasional numbness/tingling. He states the pain sometimes wakes him up from sleep. He reports associated "cold sweats" and SOB. Pain aggravated by exertion. No relieving factors. He does not recall receiving SL NTG. His chest wall is somewhat tender to palpation; however, he states the tenderness is different from the aching sensation he is feeling. He states "this doesn't feel like a pulled muscle." Pt is previously unknown to our practice. He has never been seen by a Regulatory Compliance Specialist. He denies any prior hx of NE or CAD but reports that 3 of his siblings prematurely of MIs (2 in their 30s and 1 in his early 50s). Past History Past Medical History: other (Asthma, Chiari malformation status post repair). denies: acute NE, arrhythmia, CAD, diabetes, DVT, heart failure, hypertension, hyperlipidemia, pulmonary embolism, renal failure, stroke Past Surgical History: cholecystectomy, Other (Chiari malformation status post repair (2018)). denies: valve replacement, CABG, PTCA Social history: smoking. denies: alcohol abuse Family history: CAD Medications and Allergies Allergies Allergy/AdvReac Type Severity Reaction Status Date / Time tomato Allergy Shortness Verified 03/03/22 20:10 of Breath Home Medications Medication Instructions Recorded Confirmed Last Taken Type Albuterol Sulfate [Albuterol 0.63% 0.63 mg IH Q4HR PRN 30 Days 07/07/21 03/04/22 Unknown Rx NEBS] allopurinoL [Zyloprim] 100 mg PO QDAY #30 tablet 11/06/21 03/04/22 Unknown Rx Active Meds: Active Medications Acetaminophen (Acetaminophen 325 Mg Tab) 650 mg PO Q4H PRN PRN Reason: Pain MILD(1-3)/Fever >100.5/TRUJILLO Aspirin (Aspirin 81 Mg Tab Chew) 81 mg PO DAILY [facility] Enoxaparin Sodium (Enoxaparin 40 Mg/0.4 Ml Inj) 40 mg SUB-Q DAILY [facility]; Protocol Morphine Sulfate (Morphine 4 Mg/1 Ml Inj) 2 mg IV Q4H PRN PRN Reason: Pain , Severe (7-10) Nitroglycerin (Nitroglycerin 0.4 Mg Tab Subl) 0.4 mg SL .Q5MIN PRN PRN Reason: Chest Pain Ondansetron HCl (Ondansetron 4 Mg/2 Ml Inj) 4 mg IV Q8H PRN PRN Reason: Nausea And Vomiting Oxycodone/Acetaminophen (Oxycodone /Acetaminophen 5-325mg Tab) 1 tab PO Q6H PRN PRN Reason: Pain, Moderate (4-6) Last Admin: 03/04/22 09:11 Dose: 1 tab Sodium Chloride (Sodium Chloride 0.9% 10 Ml Flush Syringe) 10 ml IV BID [facility] Last Admin: 03/04/22 10:48 Dose: Not Given Sodium Chloride (Sodium Chloride 0.9% 10 Ml Flush Syringe) 10 ml IV PRN PRN PRN Reason: LINE FLUSH Review of Systems Constitutional: chills, sweats, no fever Ears, nose, mouth and throat: no nasal congestion, no sore throat Cardiovascular: chest pain, shortness of breath, no orthopnea, no palpitations, no edema, no syncope, no lightheadedness Respiratory: shortness of breath, no cough Gastrointestinal: no nausea, no vomiting Genitourinary Male: no dysuria Musculoskeletal: no myalgias Integumentary: no rash, no wounds Neurological: numbness, tingling, no syncope, no headaches Psychiatric: anxiety Endocrine: no cold intolerance, no heat intolerance Hematologic/Lymphatic: no easy bruising, no easy bleeding Allergic/Immunologic: no anaphylaxis Physical Examination Vital Signs Temp Pulse Resp BP Pulse Ox 98.3 F 67 18 123/87 95 03/03/22 20:08 03/03/22 20:08 03/03/22 20:08 03/03/22 20:08 03/03/22 20:08 General appearance: no acute distress HEENT: Positive: EOMI, Normocephaly Neck: Negative: JVD/HJR Cardiac: Positive: Reg Rate and Rhythm, S1/S2 Lungs: Positive: clear to auscultation Neuro: Positive: Grossly Intact Abdomen: Positive: Soft. Negative: Tender Skin: Negative: Rash Musculoskeletal: No Pain Extremities: Present: lower extr. pulses, warm. Absent: edema Results 03/03/22 20:32 03/05/22 04:53 Cardiac Enzymes 03/03/22 Range/Units 20:32 AST 12 (5-40) units/L CBC 03/03/22 Range/Units 20:32 WBC 7.8 (4.5-11.0) K/mm3 RBC 5.34 H (3.65-5.03) M/mm3 Hgb 16.1 H (11.8-15.2) gm/dl Hct 46.1 H (35.5-45.6) % Plt Count 272 (140-440) K/mm3 Lymph # (Auto) 2.8 (1.2-5.4) K/mm3 [place] # (Auto) 0.9 H (0.0-0.8) K/mm3 Eos # (Auto) 0.8 H (0.0-0.4) K/mm3 Baso # (Auto) 0.0 (0.0-0.1) K/mm3 Comprehensive Metabolic Panel 03/03/22 Range/Units 20:32 Sodium 136 L (137-145) mmol/L Potassium 4.5 (3.6-5.0) mmol/L Chloride 101.1 (98-107) mmol/L Carbon Dioxide 23 (22-30) mmol/L BUN 19 (9-20) mg/dL Creatinine 1.1 (0.8-1.3) mg/dL Glucose 92 (75-100) mg/dL Calcium 9.2 (8.4-10.2) mg/dL AST 12 (5-40) units/L ALT 13 (7-56) units/L Alkaline Phosphatase 97 (35-129) units/L Total Protein 7.9 (6.3-8.2) g/dL Albumin 4.7 (3.9-5) g/dL - Imaging and Cardiology Echo: pending EKG: report reviewed, image reviewed - EKG Interpretation EKG: no acute changes EKG interpretations - Telemetry EKG Rhythm: Sinus Rhythm - EKG Sinus rhythms and dysrhythmias: sinus rhythm Repolarization changes or abnormalities: nonspecific abnormality, ST segment, and/or T wave Assessment and Plan Assessment: Chest Pain Family Hx of Premature CAD Obesity Asthma H/o Tobacco Abuse (ages 15-30 up to 2PPD, quit at age 29) H/o Chiari Malformation (s/p repair 2017) Plan: Tn neg x 3. ECG reveals no acute ischemic changes. HEART Score 5. Echo pending. Plan for ischemic evaluation on Sunday. NPO after midnight Sunday. Will make final decision regarding LHC vs stress test tomorrow. Initiate bASA & statin in the interim. Start also Amlodipine 2.5mg daily. Pt seen in conjunction with Dr. Ni, who agrees with the assessment and plan of care. - Patient Problems (1) Chest pain Current Visit: Yes Status: Acute (2) Family history of premature CAD Current Visit: Yes Status: Chronic
[2022-03-04] MEDS: ENOXAPARIN 40 MG/0.4 ML INJ SUB-Q SCH (14:24)
[2022-03-04] MEDS: MORPHINE 4 MG/1 ML INJ IV PRN ×2 (14:26→21:51)
[2022-03-04 15:46] LABS: Chol/HDL Ratio 6.16 %
[2022-03-04] MEDS: amLODIPine 5 MG TAB PO SCH (22:40)
[2022-03-05 05:44] LABS: BUN/Creatinine Ratio 16; Blood Urea Nitrogen 18 mg/dL (9-20); Hemolysis Index 22
[2022-03-05 06:07] LABS: INR 0.96 (0.87-1.13)
[2022-03-05] MEDS: MORPHINE 4 MG/1 ML INJ IV PRN ×4 (07:17→22:37)
--- NOTE | 2022-03-05 09:03 | Progress Note ---
Assessment and Plan - Patient Problems (1) Angina at rest Current Visit: Yes Status: Acute Plan to address problem: ACS protocol: Serial cardiac enzymes, EKG, telemetry monitoring. Cardiology team consulted. Patient pending cardiac cath in a.m. (2) Diastolic CHF Current Visit: Yes Status: Acute Qualifiers: Heart failure chronicity: acute Qualified Code(s): I50.31 - Acute diastolic (congestive) heart failure Plan to address problem: Strict I's/O, monitor urine output every shift, daily weight, afterload reduction, blood pressure control, echocardiogram pending at this time. (3) Obesity hypoventilation syndrome Current Visit: Yes Status: Acute Plan to address problem: Balanced diet, increase physical activity discharge, outpatient pulmonary follow-up for sleep study. (4) DVT prophylaxis Current Visit: Yes Status: Acute Plan to address problem: SCD to bilateral lower extremities while in bed (5) Advance care planning Current Visit: Yes Status: Acute Plan to address problem: Disease education conducted, care plan discussed, diagnoses discussed, prognosis discussed, patient is full code. Patient acknowledges understanding and agreement with care plan, +30 minutes. (6) Preventative health care Current Visit: Yes Status: Acute Plan to address problem: Patient counseled regarding balanced diet, increase physical activity discharge, meal planning, patient instructed to follow-up with primary care physician within 1 week for reevaluation and administration of all age and risk factor appropriate screening tests. +15 minutes. History Interval history: 46-year-old [facility] with angina, diastolic CHF, obesity hypoventilation syndrome. Patient pending cardiac cath in a.m. Patient resting comfortably. No reported nursing events. Patient still complains of chest discomfort with exertion which is resolved with pain medication. No telemetry events overnight. Hospitalist Physical - Constitutional Vitals: Temp Pulse Resp BP Pulse Ox 97.5 F L 85 18 120/83 98 03/05/22 08:21 03/05/22 08:21 03/05/22 08:21 03/05/22 08:21 03/05/22 08:55 General appearance: Present: no acute distress - EENT Eyes: Present: PERRL ENT: hearing intact - Neck Neck: Present: supple - Respiratory Respiratory effort: normal Respiratory: bilateral: CTA - Cardiovascular Rhythm: regular Heart Sounds: Present: S1 & S2 - Extremities Extremities: no ischemia Peripheral Pulses: within normal limits - Abdominal General gastrointestinal: soft, non-tender, non-distended - Integumentary Integumentary: Present: clear, dry - Psychiatric Psychiatric: cooperative - Neurologic Neurologic: CNII-XII intact HEART Score - HEART Score EKG: Non-specific Age: 45-65 Risk factors: 1-2 risk factors Troponin: Troponin T < 0.010 ng/mL (0.00-0.029) 03/04/22 03:07 Troponin: < normal limit - Critical Actions Critical Actions: 4-6 pts:12-16.6% risk of adverse cardiac event. Should be ad mitted Results - Labs CBC & Chem 7: 03/03/22 20:32 03/05/22 04:53 Labs: Laboratory Last Values WBC 7.8 K/mm3 (4.5-11.0) 03/03/22 20:32 RBC 5.34 M/mm3 (3.65-5.03) H 03/03/22 20:32 Hgb 16.1 gm/dl (11.8-15.2) H 03/03/22 20:32 Hct 46.1 % (35.5-45.6) H 03/03/22 20:32 MCV 86 fl (84-94) 03/03/22 20:32 MCH 30 pg (28-32) 03/03/22 20:32 MCHC 35 % (32-34) H 03/03/22 20:32 RDW 12.7 % (13.2-15.2) L 03/03/22 20:32 Plt Count 272 K/mm3 (140-440) 03/03/22 20:32 Lymph % (Auto) 36.4 % (13.4-35.0) H 03/03/22 20:32 [place] % (Auto) 11.0 % (0.0-7.3) H 03/03/22 20:32 Eos % (Auto) 10.7 % (0.0-4.3) H 03/03/22 20:32 Baso % (Auto) 0.4 % (0.0-1.8) 03/03/22 20:32 Lymph # (Auto) 2.8 K/mm3 (1.2-5.4) 03/03/22 20:32 [place] # (Auto) 0.9 K/mm3 (0.0-0.8) H 03/03/22 20:32 Eos # (Auto) 0.8 K/mm3 (0.0-0.4) H 03/03/22 20:32 Baso # (Auto) 0.0 K/mm3 (0.0-0.1) 03/03/22 20:32 Seg Neutrophils % 41.5 % (40.0-70.0) 03/03/22 20:32 Seg Neutrophils # 3.2 K/mm3 (1.8-7.7) 03/03/22 20:32 PT 13.8 Sec. (12.2-14.9) 03/05/22 04:53 INR 0.96 (0.87-1.13) 03/05/22 04:53 D-Dimer 389.76 ng/mlDDU (0-234) H 03/04/22 14:14 Sodium 136 mmol/L (137-145) L 03/05/22 04:53 Potassium 3.9 mmol/L (3.6-5.0) 03/05/22 04:53 Chloride 102.5 mmol/L (98-107) 03/05/22 04:53 Carbon Dioxide 20 mmol/L (22-30) L 03/05/22 04:53 Anion Gap 17 mmol/L 03/05/22 04:53 BUN 18 mg/dL (9-20) 03/05/22 04:53 Creatinine 1.1 mg/dL (0.8-1.3) 03/05/22 04:53 Estimated GFR > 60 ml/min 03/05/22 04:53 BUN/Creatinine Ratio 16 % 03/05/22 04:53 Glucose 91 mg/dL (75-100) 03/05/22 04:53 Hemoglobin A1c 5.6 % (4-6) 03/04/22 Unknown Calcium 9.0 mg/dL (8.4-10.2) 03/05/22 04:53 Total Bilirubin 0.60 mg/dL (0.1-1.2) 03/03/22 20:32 AST 12 units/L (5-40) 03/03/22 20:32 ALT 13 units/L (7-56) 03/03/22 20:32 Alkaline Phosphatase 97 units/L (35-129) 03/03/22 20:32 Troponin T < 0.010 ng/mL (0.00-0.029) 03/04/22 03:07 Total Protein 7.9 g/dL (6.3-8.2) 03/03/22 20:32 Albumin 4.7 g/dL (3.9-5) 03/03/22 20:32 Albumin/Globulin Ratio 1.5 % 03/03/22 20:32 Triglycerides 228 mg/dL (2-149) H 03/04/22 14:14 Cholesterol 154 mg/dL (50-199) 03/04/22 14:14 LDL Cholesterol Direct 100 mg/dL (50-130) 03/04/22 14:14 HDL Cholesterol 25 mg/dL (40-59) L 03/04/22 14:14 Cholesterol/HDL Ratio 6.16 % 03/04/22 14:14 Rosa/IV: Voiding Method Toilet Active Medications - Current Medications Current Medications: Generic Name Dose Route Start Last Admin Trade Name Freq PRN Reason Stop Dose Admin Acetaminophen 650 mg 03/04/22 07:40 Acetaminophen 325 Mg Tab PO Q4H PRN Pain MILD(1-3)/Fever >100.5/TRUJILLO Amlodipine Besylate 2.5 mg 03/04/22 19:00 03/04/22 22:40 Amlodipine 5 Mg Tab PO Not Given QDAY [facility] Aspirin 81 mg 03/05/22 10:00 Aspirin 81 Mg Tab Chew PO DAILY [facility] Atorvastatin Calcium 40 mg 03/04/22 22:00 03/04/22 21:51 Atorvastatin 40 Mg Tab PO 40 mg QHS [facility] Administration Enoxaparin Sodium 40 mg 03/04/22 14:00 03/04/22 14:24 Enoxaparin 40 Mg/0.4 Ml Inj SUB-Q 40 mg DAILY [facility] Administration Protocol Morphine Sulfate 2 mg 03/04/22 07:40 03/05/22 07:17 Morphine 4 Mg/1 Ml Inj IV 2 mg Q4H PRN Administration Pain , Severe (7-10) Nitroglycerin 0.4 mg 03/04/22 06:40 Nitroglycerin 0.4 Mg Tab Subl SL .Q5MIN PRN Chest Pain Ondansetron HCl 4 mg 03/04/22 07:40 03/04/22 14:26 Ondansetron 4 Mg/2 Ml Inj IV 4 mg Q8H PRN Administration Nausea And Vomiting Oxycodone/Acetaminophen 1 tab 03/04/22 07:40 03/04/22 09:11 Oxycodone /Acetaminophen 5-325mg Tab PO 1 tab Q6H PRN Administration Pain, Moderate (4-6) Sodium Chloride 10 ml 03/04/22 10:00 03/04/22 21:53 Sodium Chloride 0.9% 10 Ml Flush Syringe IV 10 ml BID SHANT Administration Sodium Chloride 10 ml 03/04/22 07:40 Sodium Chloride 0.9% 10 Ml Flush Syringe IV PRN PRN LINE FLUSH
[2022-03-05] MEDS: ASPIRIN 81 MG TAB CHEW PO SCH (10:03)
[2022-03-05] MEDS: amLODIPine 5 MG TAB PO SCH (10:03)
[2022-03-05] MEDS: ENOXAPARIN 40 MG/0.4 ML INJ SUB-Q SCH (10:03)
--- NOTE | 2022-03-05 14:27 | Progress Note ---
Assessment and Plan ECHO 03/04/22: severe septal LVH, normal LV function, EF 55%, grade I diastolic dysfunction Typical chest Pain Septal LVH Strong FH of Premature CAD Obesity Asthma ECHO: severe septal hypertrophy Plan for treadmill nuclear in AM Subjective Date of service: 03/05/22 Principal diagnosis: chest pain Interval history: Pt sitting in bed without complaints Objective Vital Signs Temp Pulse Resp BP BP Pulse Ox 03/05/22 11:36 98.2 F 83 18 111/69 94 03/05/22 08:55 98 03/05/22 08:21 97.5 F L 85 18 120/83 95 03/05/22 07:17 20 03/05/22 04:17 98.4 F 86 20 114/71 92 03/04/22 23:36 98.6 F 85 20 119/76 93 03/04/22 23:00 98 03/04/22 21:04 78 03/04/22 19:13 98.4 F 81 18 107/77 91 03/04/22 16:00 98.4 F 82 18 124/72 94 - Physical Examination HEENT: Positive: EOMI, Normocephaly Neck: Negative: JVD/HJR Cardiac: Positive: Reg Rate and Rhythm Lungs: Positive: Normal Exam, clear to auscultation Neuro: Positive: Grossly Intact Abdomen: Positive: Soft. Negative: Tender Skin: Negative: Rash Musculoskeletal: No Pain Extremities: Present: lower extr. pulses, warm. Absent: edema - Labs and Meds Coagulation 03/05/22 Range/Units 04:53 PT 13.8 (12.2-14.9) Sec. INR 0.96 (0.87-1.13) Lipids 03/04/22 Range/Units 14:14 Triglycerides 228 H (2-149) mg/dL Cholesterol 154 (50-199) mg/dL HDL Cholesterol 25 L (40-59) mg/dL Cholesterol/HDL Ratio 6.16 % Comprehensive Metabolic Panel 03/05/22 Range/Units 04:53 Sodium 136 L (137-145) mmol/L Potassium 3.9 (3.6-5.0) mmol/L Chloride 102.5 (98-107) mmol/L Carbon Dioxide 20 L (22-30) mmol/L BUN 18 (9-20) mg/dL Creatinine 1.1 (0.8-1.3) mg/dL Glucose 91 (75-100) mg/dL Calcium 9.0 (8.4-10.2) mg/dL - Imaging and Cardiology EKG: report reviewed, image reviewed Echo: report reviewed - EKG Sinus rhythms and dysrhythmias: sinus rhythm Repolarization changes or abnormalities: nonspecific abnormality, ST segment, and/or T wave
[2022-03-06] MEDS ORDERED: REGADENOSON 0.4 MG/5 ML INJ IV ONE (07:01)
[2022-03-06 10:47] VITALS: BP 105/84
--- NOTE | 2022-03-06 11:23 | Progress Note ---
Assessment and Plan Pt is a 46-year-old male with a hx of asthma and tobacco abuse (quit at age 29) who presented with complaints of left-sided chest pain. Chest Pain Family Hx of Premature CAD Obesity Asthma H/o Tobacco Abuse (ages 15-30 up to 2PPD, quit at age 29) H/o Chiari Malformation (s/p repair 2018) ECHO 03/04/22: severe septal LVH, normal LV function, EF 55%, grade I diastolic dysfunction Lexiscan MPI stress test 03/06/2022-normal study with no scintigraphic evidence of myocardial ischemia or scar Plan: Tn neg x 3. ECG reveals no acute ischemic changes. Echo results noted abvoe Lexiscan MPI stress test results negative for ischemia. See report for full details Cardiac status otherwise stable Patient should follow-up with Dr. Ni, [facility] medical lab specialist, 03/29/2022 at 2:30pm at our [place] location. Phone #[phone] Pt seen in conjunction with Dr. Begum, who agrees with the assessment and plan of care - Patient Problems (1) Chest pain Current Visit: Yes Status: Acute (2) Obesity hypoventilation syndrome Current Visit: Yes Status: Acute (3) Family history of premature CAD Current Visit: Yes Status: Chronic (4) Status asthmaticus Current Visit: No Status: Acute Qualifiers: Asthma severity: severe Asthma persistence: unspecified Qualified Code(s): J45.902 - Unspecified asthma with status asthmaticus Subjective Date of service: 03/06/22 Principal diagnosis: chest pain Interval history: For Lexiscan stress test this a.m. Sinus 80s to 90s with no events on monitor Objective Vital Signs Temp Pulse Resp Resp BP BP Pulse Ox 03/06/22 10:00 86 03/06/22 09:04 105/84 03/06/22 09:03 108/81 03/06/22 09:01 122/80 03/06/22 09:00 160/113 03/06/22 08:32 111/79 03/06/22 08:00 20 03/06/22 07:30 98.5 F 86 16 120/84 95 03/06/22 04:19 98.5 F 82 20 122/84 95 03/05/22 23:31 98.7 F 84 20 125/77 96 03/05/22 23:07 20 03/05/22 22:37 20 03/05/22 20:38 93 H 03/05/22 20:17 94 03/05/22 20:00 20 03/05/22 19:26 98.4 F 87 20 132/73 94 03/05/22 18:28 18 03/05/22 16:15 98.1 F 86 18 117/78 91 03/05/22 11:36 98.2 F 83 18 111/69 94 - Physical Examination General: No Apparent Distress HEENT: Positive: EOMI, Normocephaly Neck: Positive: trachea midline. Negative: JVD/HJR Cardiac: Positive: Reg Rate and Rhythm Lungs: Positive: Normal Breath Sounds Neuro: Positive: Grossly Intact Abdomen: Positive: Soft. Negative: Tender Skin: Negative: Rash Musculoskeletal: No Pain Extremities: Present: lower extr. pulses, warm. Absent: edema - Imaging and Cardiology EKG: report reviewed, image reviewed Echo: report reviewed - Telemetry EKG Rhythm: Sinus Rhythm - EKG Sinus rhythms and dysrhythmias: sinus rhythm Repolarization changes or abnormalities: nonspecific abnormality, ST segment, and/or T wave
--- NOTE | 2022-03-06 11:25 | Nuclear Medicine Report ---
APPROVED REPORT Exam: Nuclear Stress Test Indication: Chest pain [id number] Ht: 5 ft 5 in Wt: 210 lbs BSA: 2.02 m2 HR: 81 bpmBP: 111/79 mmHgBMI: 34.94 Rhythm: Sinus Rhythm Stress Test Details Stress Test: Exercise stress testing was performed using a [place] protocol. HR Resting HR: 86 bpm Max HR Achieved: 137 bpm Max Heart Rate (APMHR): 173 bpm Target HR (85% APMHR): 147 bpm % of APMHR: 79 Recovery HR: 102 bpm HR response to stress: Normal HR response to stress BP Resting BP: 105/79 mmHg Max BP: 160/113 mmHg Recovery BP: 108/80 mmHg BP response to stress: Normal blood pressure response to stress. ECG Resting ECG: Sinus Rhythm,q waves in inferolateral leads,?old inferolateral [place]. Stress ECG: Sinus Tachycardia, Sinus Tachycardia ST Change: None Arrhythmia: None Recovery ECG: Sinus Tachycardia Recovery ST Change: None Recovery Arrhythmia: None Clinical Reason for Termination: Fatigue Stress Symptoms: Fatigue, Shortness of breath Exercise duration: 10 min 12 sec Exercise capacity: 10.2 METs Overall Exercise Capacity for Age: Good Patient achieved hR of 137 bpm,which is only 79% of PMHR,exercised for9'00" on standardBruce protocol.No chest pain,only SOB ,appropriate B.P response noted. Stress ECG Conclusion Negative for angina,negative for ischemia,however achieved only 79% of PMHR. NM EXAM: Myocardial Perfusion REST/STRESS Imaging Protocol: Rest Tc-99m/Stress Tc-99m 1 day Resting Data Rest SPECT myocardial perfusion imaging was performed in supine position 45 minutes following the intravenous injection of 10 mCi of Tc-99m Myoview. Time of rest injection: 0715 Exercise Stress At peak stress, the patient was injected intravenously with 28mCi of Tc-99m Myoview. Time of stress injection: 0900 Gated Stress SPECT was performed 15 minutes after stress injection. The images were gated to evaluate regional wall motion and calculate left ventricular ejection fraction. Study Quality Study: excellent Lung Uptake: Normal Study Data TID = 0.91. Perfusion Wall Motion The rest and stress images show normal left ventricular wall motion.LVEF post stress 64%. Nuclear Conclusion ECG Findings: negative for ischemia Clinical Findings: negative for ischemia Nuclear Findings: negative for ischemia Exercise Capacity: normal Left Ventricular Function: normal Risk Study: low This study is unremarkable except patient attained only 79% of PMHR. Normal study. No scintigraphic evidence for myocardial ischemia or scar. Conclusion Negative for angina,negative for ischemia,however achieved only 79% of PMHR.
--- NOTE | 2022-03-06 12:15 | Discharge Summary ---
Providers - Providers Date of Admission: 03/04/22 07:41 Attending physician: WISAM EVANS MD 03/04/22 07:39 Consult to Physician [CONS] Routine Comment: Consulting Provider: ARASELI PHILIP Physician Instructions: Reason For Exam: Typical chest pain- possible unstable angina Primary care physician: KARL VILLALBA Hospitalization Reason for admission: Chest pain Condition: Stable Hospital course: Pt is a 46-year-old male with a hx of asthma and tobacco abuse (quit at age 29) who presented with complaints of left-sided chest pain. 46-year-old [facility] day 2 with angina, diastolic CHF, obesity hypoventilation syndrome. Patient pending cardiac cath in a.m. Patient resting comfortably. No reported nursing events. Patient still complains of chest discomfort with exertion which is resolved with pain medication. No telemetry events overnight. Patient seen and reevaluated today chest pain reproducible in the left upper side. I discussed extensively with the patient the stress test was negative. Recommended follow-up with Dr. Rodriguez at the [facility] and carpentry specialist in 1 to 2 weeks information provided he verbalized understanding and recommended no strenuous activity until he is seen by cardiology outpatient. Chest Pain Family Hx of Premature CAD Obesity Asthma H/o Tobacco Abuse (ages 15-30 up to 2PPD, quit at age 29) H/o Chiari Malformation (s/p repair 2017) ECHO 03/04/22: severe septal LVH, normal LV function, EF 55%, grade I diastolic dysfunction Lexiscan MPI stress test 03/06/2022-normal study with no scintigraphic evidence of myocardial ischemia or scar Plan: Tn neg x 3. ECG reveals no acute ischemic changes. Echo results noted abvoe Lexiscan MPI stress test results negative for ischemia. See report for full details Cardiac status otherwise stable Patient should follow-up with Dr. Rodriguez, [facility] carpentry specialist, in 1 to 2 weeks after discharge. Phone #[phone] - Patient Problems (1) Chest pain-atypical likely costochondritis Current Visit: Yes Status: Acute (2) Obesity hypoventilation syndrome Current Visit: Yes Status: Acute (3) Family history of premature CAD Current Visit: Yes Status: Chronic (4) Status asthmaticus Current Visit: No Status: Acute Qualifiers: Asthma severity: severe Asthma persistence: unspecified Qualified Code(s): J45.902 - Unspecified asthma with status asthmaticus (5) Diastolic CHF Current Visit: Yes Status: Acute Qualifiers: Heart failure chronicity: acute Qualified Code(s): I50.31 - Acute diastolic (congestive) heart failure Plan to address problem: Strict I's/O, monitor urine output every shift, daily weight, afterload reduction, blood pressure control, echocardiogram pending at this time. (3) Obesity hypoventilation syndrome Current Visit: Yes Status: Acute Plan to address problem: Balanced diet, increase physical activity discharge, outpatient pulmonary follow-up for sleep study. Disposition: HOME / SELF CARE / HOMELESS Final Discharge Diagnosis (Prints w/discharge instructions): Atypical chest pain. Secondary to costochondritis Time spent for discharge: 35 minutes Core Measure Documentation - Palliative Care Palliative Care/ Comfort Measures: Not Applicable - Core Measures Any of the following diagnoses?: none Exam - Physical Exam Narrative exam: VITAL SIGNS: Reviewed. GENERAL: The patient appears normally developed, Vital signs as documented. HEAD: No signs of head trauma. EYES: Pupils are equal. Extraocular motions intact. EARS: Hearing grossly intact. MOUTH: Oropharynx is normal. NECK: No adenopathy, no JVD. CHEST: Chest with clear breath sounds bilaterally. No wheezes, rales, or rhonchi. CARDIAC: Regular rate and rhythm. S1 and S2, without murmurs, gallops, or rubs. VASCULAR: No Edema. Peripheral pulses normal and equal in all extremities. ABDOMEN: Soft, non tender and non distended. No rebound or guarding, and no masses palpated. Bowel Sounds normal. MUSCULOSKELETAL: Left pectoralis muscle pain reproducible good range of motion of all major joints. Extremities without clubbing, cyanosis or edema. NEUROLOGIC EXAM: Alert and oriented x 3 No focal sensory or strength deficits. Speech normal. Follows commands. PSYCHIATRIC: Mood normal. SKIN: detail exam as documented in skin assessment - Constitutional Vitals: Temp Pulse Resp BP Pulse Ox 98.5 F 86 20 105/84 95 03/06/22 07:30 03/06/22 10:00 03/06/22 08:00 03/06/22 09:04 03/06/22 07:30 Plan Activity: advance as tolerated, fall precautions Diet: low fat Special Instructions: record daily BP diary Follow up with: KARL VILLALBA MD [Primary Care Provider] - 3-5 Days JANETH RODRIGUEZ MD [Staff Physician] - 7 Days Prescriptions: AtorvaSTATin [Lipitor] 40 mg PO QHS #30 tablet amLODIPine 2.5 mg PO QDAY #30 tablet Aspirin [Aspirin BABY CHEW TAB] 81 mg PO DAILY #30 tab.chew
[2022-03-06] MEDS: amLODIPine 5 MG TAB PO SCH (13:26)
[2022-03-06] MEDS: ENOXAPARIN 40 MG/0.4 ML INJ SUB-Q SCH (13:26)
[2022-03-06] MEDS: ASPIRIN 81 MG TAB CHEW PO SCH (13:26)
--- NOTE | 2022-03-07 12:13 | Electrocardiograph Report ---
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
--- NOTE | 2022-03-07 12:16 | Electrocardiograph Report ---
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
--- NOTE | 2022-03-07 12:17 | Electrocardiograph Report ---
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
== END 2022-03-06 14:38 | disposition home or self-care (01) ==
LOC: ED 19:21 → 4A 03-04 07:41 → INTOOBSV 03-04 07:41 → 4A 03-04 08:17
PROVIDERS: ADMIT Student in an Organized Health Care Education/Training Program; ATTEND Internal Medicine
DX: I20.8 Other forms of angina pectoris (principal); I11.0 Hypertensive heart disease with heart failure; I50.31 Acute diastolic (congestive) heart failure; R07.89 Other chest pain; E66.9 Obesity, unspecified; J44.9 Chronic obstructive pulmonary disease, unspecified; M94.0 Chondrocostal junction syndrome [Tietze]; E66.2 Morbid (severe) obesity with alveolar hypoventilation; Z90.49 Acquired absence of other specified parts of digestive tract; Z79.899 Other long term (current) drug therapy; Z98.890 Other specified postprocedural states; Z79.82 Long term (current) use of aspirin; Z68.34 Body mass index [BMI] 34.0-34.9, adult
CPT/HCPCS: 36415; 71046; 78452; 80048; 80053; 80061; 83036; 84484; 85025; 85379; 85610; 93005; 93017; 96372; 96374; 96375; 96376; 99285; A9502; C8929; C9113; G0378; J1650; J2270; J2405; 93306